=== PATIENT | male | born 1960 | race Caucasian/White ===

== ENCOUNTER 2022-07-13 02:55 | Emergency (ER) | payer BC, SELFPAY ==
[2022-07-13 02:59] VITALS: BP 152/86; PULSE 76; RESP 16; TEMP 36.5; O2SAT 96; BMI 31.9
--- NOTE | 2022-07-13 03:39 | ED.GENADULT ---
HPI - General Adult General Date Seen: 07/13/22 Chief complaint: Eye Problems Stated complaint: Left eye itching, glued shut. 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 He was doing some siding work two days ago and that evening noticed some redness in his left eye. His vision has been normal. He did not recall anything going into the eye. He has had increasing itching and redness and has been waking up with his eye stuck shut. Last tetanus was nine years ago. He used some asxh-cnb-lmuyoen drops for red eye and those did not seem to help much. Related Data Home Medications Medication Instructions Recorded Confirmed amlodipine 10 mg tablet mg 07/13/22 losartan 25 mg tablet mg 07/13/22 Allergies Allergy/AdvReac Type Severity Reaction Status Date / Time No Known Drug Allergies Allergy Verified 07/13/22 03:02 Review of Systems Status of ROS: Reports: 10 or more systems reviewed and unremarkable except as noted in History and below PFSH PFSH Social History Smoking Status: Never smoker How often do you have a drink containing alcohol: 4 or more times a week AUDIT-C Alcohol total score: 4 Non-prescribed substance use: denies use Exam Narrative: Exam Narrative: Examination of the right eye is normal. No conjunctival redness. On the left he has diffuse injection of the conjunctiva with some yellow mattering. After a couple of tetracaine drops there is a black spot at the 10 o'clock position on the left eye. Pupils are equal round reactive to light and accommodation. Funduscopic exam is normal. There appears to be a small metallic foreign body lodged in the cornea. After anesthesia I used a 27 gauge needle to remove two small metallic pieces. I then used in Baldwin brush to remove the surrounding ring. There is still a remaining black speck and I am uncomfortable going any deeper into the cornea. Unclear if this is more retained foreign material or just some further staining of the cornea. He certainly needs follow-up with an senior publications specialist. He tolerated the procedure well. Const: Vital Signs, click to edit/add: Vital Signs - 24 hr 07/13/22 02:59 Temperature 97.7 F Pulse Rate [Right Pulse Oximeter] 76 Respiratory Rate 16 Blood Pressure [Ri ght Upper Arm] 152/86 H Pulse Oximetry 96 Oxygen Delivery Me thod Room Air Course Vital Signs Vital signs: Initial Vital Signs Temperature 97.7 F 07/13/22 02:59 Temperature Source Temporal Artery Scan 07/13/22 02:59 Pulse Rate 76 07/13/22 02:59 Respiratory Rate 16 07/13/22 02:59 Blood Pressure 152/86 H 07/13/22 02:59 Blood Pressure Mean 108 07/13/22 02:59 Blood Pressure Position Sitting 07/13/22 02:59 Pulse Oximetry 96 07/13/22 02:59 Oxygen Delivery Method 07/13/22 02:59 Vital Signs Temperature 97.7 F 07/13/22 02:59 Pulse Rate 76 07/13/22 02:59 Respiratory Rate 16 07/13/22 02:59 Blood Pressure 152/86 H 07/13/22 02:59 Pulse Oximetry 96 07/13/22 02:59 Oxygen Delivery Method 07/13/22 02:59 Temperature 97.7 F 07/13/22 02:59 Pulse Rate 76 07/13/22 02:59 Respiratory Rate 16 07/13/22 02:59 Blood Pressure 152/86 H 07/13/22 02:59 Pulse Oximetry 96 07/13/22 02:59 Oxygen Delivery Method 07/13/22 02:59 Discharge Plan Discharge Clinical Impression: Corneal foreign body Patient Disposition: Home, Self-Care Condition: Improved Additional Instructions: See Dr Person (or partner today or tomorrow) [phone]. Gentamicin 2 drops every 4 hours. Ibuprofen for pain. Prescriptions: No Action amlodipine 10 mg tablet losartan 25 mg tablet Follow Up/Referrals: Satya Thornton MD [Primary Care Provider] - Stand Alone Forms: [facility] Info Instructions
--- OUTSIDE RECORDS SUMMARY | 2022-07-13 03:48 | XMS_ITS | Clinical Summary ---
:1960 Author Organization [facility] Address [address] [place] [id number] Care Team Providers Name Role Phone Satya Thornton Primary Care Provider Allergies No known active allergies Medications Medication Sig Dispensed Refills Start Date End Date Status amLODIPine (NORVASC) Take 10 mg by mouth 0 Active 10 MG tablet every evening losartan (COZAAR) 50 Take 50 mg by mouth 0 Active MG tablet every evening nystatin (MYCOSTATIN) Apply topically 2 0 Active [id number] UNIT/GM times daily as external cream needed SENNA-docusate sodium Take 1-2 tablets by 30 tablet 0 05/04/20 21 Active (SENNA S) 8.6-50 MG mouth 2 times daily tabletIndications: as needed Prostate cancer (H) (constipation) Active Problems Problem Noted Date Prostate cancer 05/04/2021 Resolved Problems Problem Noted Date Resolved Date Tear of medial cartilage or meniscus of knee, current 201009/09/2011 Other postprocedural status(V45.89) 06/27/201108/19 Social History Tobacco Use Types Packs/Day Years Used Date Smoking Tobacco: Never Smokeless Tobacco: Never Alcohol Use Standard Drinks/Week Comments Yes 0 (1 standard drink = 0.6 oz pure alcoho l) 3 BEERS/ WEEK Sex Assigned at Date Recorded Not on file Last Filed Vital Signs Vital Sign Reading Time Taken Comments Blood Pressure 100/66 05/05/2021 8:40 AM CDT Pulse 93 05/05/2021 8:40 AM CDT Temperature 37.1 ??C (98.7 ??F) 05/05/2021 8:40 AM CDT Respiratory Rate 15 05/05/2021 8:40 AM CDT Oxygen Saturation 96% 05/05/2021 8:40 AM CDT Inhaled Oxygen Concentration - - Weight 94.5 kg (208 lb 6.4 oz) 05/04/2021 5:58 AM CDT Height 175.3 cm (5' 9) 05/04/2021 5:58 AM CDT Body Mass Index 30.78 05/04/2021 5:58 AM CDT Plan of Treatment Health Maintenance Due Date Last Done Comments ADVANCE CARE PLANNING 1960 ANNUAL REVIEW OF HM ORDERS 1960 CT COLONOGRAPHY 1960 FIT-DNA (Cologuard) 1960 FIT 1960 FLEX SIG 1960 HEPATITIS B IMMUNIZATION (1 1960 of 3 - 3-dose series) YEARLY PREVENTIVE VISIT 1960 COLONOSCOPY 11/27/1969 COLORECTAL CANCER SCREENING 11/27/1969 HIV SCREENING 11/27/1974 HEPATITIS C SCREENING 11/27/1977 LIPID 11/27/1994 ZOSTER IMMUNIZATION (1 of 11/27/2009 2) COVID-19 Vaccine (3 - 02/18/2021 12/24/2020, 11/26/2020 Booster for Moderna series) PHQ-2 (once per calendar 09/18/2021 year) INFLUENZA VACCINE (#1) 2022 06/10/2020, 06/03/2011, 05/29/2009, Additional history exists DTAP/TDAP/TD IMMUNIZATION 07/01/2023 07/01/2013, 01/20/2011 , (3 - Td or Tdap) 07/01/2003, Additional history exists IPV IMMUNIZATION Aged Out No longer eligi ble based on patient 's age to complete this topic MENINGITIS IMMUNIZATION Aged Out No longe r eligible based on patient 's age to complete this topic Pneumococcal Vaccine: Aged Out No longer eligible Pediatrics (0 to 5 Years) based on patient's age and At-Risk Patients (6 to to co mplete this topic 64 Years) Insurance Payer Benefit Plan / Subscriber ID Effective Dates Phone Addre ss Type Group BCBS [facility] [id number] 2020-Present [phone] [address] [address] [place] [address] Advance Directives For more information, please contact: [phone] Latest Code Status on File Code Status Date Activated Date Inactivated Comments Full Code 05/04/2021 3:05 PM 05/05/2021 3:39 PM All basic an d advanced life-sustaining interventions are performed as fahad ropriate Question Answer Comments Code status determined by: Unable to discuss and no AD/POLST on file; continue PREVIOUSLY ORDERED code status Care Teams Engineer And Geologist Relationship Specialty Start Date End Date Satya Thornton PCP - General Family Medicine 04/14/[address] [place] [address]
--- OUTSIDE RECORDS SUMMARY | 2022-07-13 03:49 | XMS_ITS | Encounter Summary ---
:1960 Author Organization [facility] Address [address] [place] [address] Care Team Providers Name Role Phone Unavailable Primary Care Provider Unavailable Reason for Visit Appointment Request (Routine) - Closed Specialty Diagnoses / Procedures Referred By Contact Refer red To Contact Radiation Oncology Diagnoses Prostate Cancer Vinay Hui M.D. [address] [facility] [address] [address] Referral ID Status Reason Start Date Expiration Date Visits Requ ested Visits Authorized [id number] Closed 02/05/2021 02/05/2022 1 1 Encounter Details Date Type Department Care Team Description 02/17/2021 Hospital Encounter Department of Jaime Woo Malignant Radiation Oncology Юлия [facility] Neoplasm Of Prostate in [place], [facility] [address] [facility] (HCC) (Primary Dx) [place], [place] [address] [facility] [address] [place], [place] [phone] (Work) [phone] Social History Tobacco Use Types Packs/Day Years Used Date Smoking Tobacco: Never Assessed Sex Assigned at Date Recorded Not on file documented as of this encounter Last Filed Vital Signs Vital Sign Reading Time Taken Comments Blood Pressure 140/86 02/17/2021 1:52 PM CDT Pulse 85 02/17/2021 1:52 PM CDT Temperature 36.7 ??C (98 ??F) 02/17/2021 1:52 PM CDT Respiratory Rate - - Oxygen Saturation - - Inhaled Oxygen Concentration - - Weight 93.4 kg (205 lb 14.6 oz) 02/17/2021 1:52 PM CDT Height 172.5 cm (5' 7.91) 02/17/2021 1:52 PM CDT Body Mass Index 31.39 02/17/2021 1:52 PM CDT documented in this encounter Medications at Time of Discharge Medication Sig Dispensed Refills Start Date End Date nystatin (MYCOSTATIN) Apply topically. 0 06/19/20 17 100,000 unit/gram cream tamsulosin (FLOMAX) 0.4 mg Take 0.4 mg by mouth. 0 09/13/2020 24 hr capsule documented as of this encounter Consult Notes Jaime Woo M.D. - 02/17/2021 1:30 PM CDT SUBJECTIVE REQUESTING PROVIDER Vinay Hui M.D. REASON FOR CONSULT 1. Primary Malignant Neoplasm Of Prostate (HCC) HISTORY OF PRESENT ILLNESS Mr. Steve Cervantes is a 60 y.o. male with intermediate risk prostate cancer. I am asked by Dr. Hui to evaluate the patient for radiotherapy. His oncologic history is as follows: 1. August 29, 2019: PSA 5.14 ng/mL. 2. November 12, 2019: 4.45 ng/mL. 3. June 16, 2020: PSA 5.76 ng/mL. 4. August 04, 2020: Patient had a TRUS biopsy which showed no cancer with acute and chronic inflammation. 5. November 19, 2020: PSA 6.16 ng/mL. 6. November 23, 2020: Consultation with Dr. Hui who recommended an MRI. 7. November 26, 2020: Prostate MRI revealed a BI-RADS of 5 at the right base of the prostate with a 71.7 g prostate. 8. January 22, 2021: UroNav biopsy revealed adenocarcinoma of the prostate [place] 3 + 4 involving 10-80%. Perineural invasion not seen. 9. February 03, 2021: Bone scan was negative. INTERVAL HISTORY The patient reports that he is currently feeling well. He does have occasional urinary urgency as well as nocturia x1 and the slow stream. He takes Flomax 0.4 mg at bedtime. He denies any dysuria, hematuria, bladder incontinence, bowel incontinence melena, hematochezia, or new persistent bone pain. Hehas some erectile dysfunction and tried Viagra without much benefit on 1 occasion. The patient denies a history of prior radiation therapy, connective tissue disorders, or inflammatory bowel disease. The patient's ECOG performance status is 0. AUA SYMPTOM INDEX February 17, 2021: 8 (0, 2, 0, 1, 5, 0, 1) IIEF-5 February 17, 2021: 20 (2, 5, 5, 4, 4) indicative of mild erectile dysfunction. REVIEW OF SYSTEMS Review of systems was negative except as documented above. PATIENT REPORTED SYMPTOM SCREEN FATIGUE (Scale: 0 = no fatigue; 10 = worst fatigue you can imagine): 0 PAIN (Scale: 0 = no pain; 10 = worst pain you can imagine): 0 OVERALL QUALITY OF LIFE (Scale: 0 = as bad as can be; 10 = as good as can be): 10 PAST MEDICAL HISTORY 1. Metastatic Non-small cell lung cancer 2. DVT in the right calf following calcaneal fracture, no longer on anticoagulation PAST SURGICAL HISTORY 1. Right calcaneal repair, December 2007 2. Right knee arthroscopy, 1993 3. Total left hip arthroplasty, April 2019 SOCIAL HISTORY He lives in [place], [place]. He is to his , Joann. They have 3 adult children. He is a never smoker. 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 FAMILY HISTORY Paternal grandfather with prostate cancer. Maternal uncle with a brain tumor. Paternal uncle with anunknown malignancy. OBJECTIVE BP 140/86 (BP Location: Left arm, Patient Position: Sitting, Cuff Size: Small) Pulse 85 Temp 36.7 ??C (Temporal) Ht 172.5 cm Wt 93.4 kg BMI 31.39 kg/m?? PHYSICAL EXAM General: Patient is awake, alert, and oriented to person, place, and time. No apparent distress. Thepatient is here today with his , Joann. ENT: Pupils equal, round, and reactive to light. Sclera anicteric. Oral cavity inspection reveals moist mucous membranes and no visible lesions. Neck: Supple. Lymph: No palpable cervical, supraclavicular, infraclavicular, or axillary adenopathy. Spine: There is no tenderness to palpation of the spine. Lungs: Clear to auscultation bilaterally. Heart: Regular rate and rhythm. Normal S1 and S2. No murmurs. Abdomen: Normal active bowel sounds are present. Extremities: No edema on the left. Slight edema on the right to the mid botello. Rectal: Deferred. DIAGNOSTICS I reviewed the pathology reports from the patient's prostate biopsies as listed above in the numbered items of the HPI. I also went over his prostate MRI and bone scan images with him. ASSESSMENT / PLAN 1. Stage IIB (cT1c, cN0, cM0, PSA: 6.2, Grade Group: 2) adenocarcinoma of the prostate I had a detailed discussion with the patient and his regarding the risks, benefits, and alternatives of radiotherapy in this setting. I consulted the NCCN guidelines in formulating my recommendations and reviewed these with him. The patient has already discussed prostatectomy with Dr. Hui; hence, I focused my discussion on radiotherapy options. These include: 1. External beam radiotherapy alone to a dose of 60 Gy in 20 fractions or 70.2 Gy in 26 fractions utilizing IMRT; 2. A combination of external beam radiotherapy to a dose of 45 Gy in 25 fractions or 37.5 Gy in 15 fractions utilizing IMRT and 1 high dose rate prostate brachytherapy boost implant; 3. Stereotactic body radiation therapy to a dose of 36.25 to 40 Gy in 5 fractions. We discussed the use of a Hydrogel spacer and the fact that this is mandatory for SBRT but optionalfor fractionated radiotherapy. The patient is eligible for the ???COMPPARE: A Prospective Comparative Study of Outcomes with Protonand Photon Radiation in Prostate Cancer?? trial (IRB# [id number]). We discussed the similarities anddifferences of proton in photon radiation. I explained that this trial is seeking to evaluate in a prospective fashion if proton therapy is superior to photon therapy. We would be treating him with photon treatment at our site. The patient is in excellent health and has an ECOG performance status of 0. We discussed the results of the ProtecT trial that randomized patients to surgery, radiotherapy, or observation (Suzi et al, [facility], 2016) that showed that surgery and radiotherapy were equally efficacious. We also discussed the fact that surgical salvage is typically not possible after any form of prostate radiotherapy. I also discussed the indications for adjuvant radiotherapy following prostatectomy as well as salvage radiotherapy in the setting of rising PSA. I discussed the logistics as well as the acute and chronic side effects associated with treatment indetail including acute side effects of urinary frequency and urgency, dysuria, bowel frequency and urgency, diarrhea, gaseous bloating and discomfort, radiation dermatitis, loss of pubic hair, and fatigue. Long-term side effects include common mild increase in urinary and bowel frequency, as well as more rare side effects including radiation cystitis (5% risk or less), radiation proctitis (5% or lessrisk), urethral stenoses requiring dilatation (1% risk or less), fistula formation (less than 1% risk), increasing arthritis of the hips, small bowel obstruction, and a very small risk of secondary malignancy. The patient is also likely to experience erectile dysfunction. After this discussion, I provided the patient with a written summary of my recommendations. His questions and those of his spouse were answered to their verbalized satisfaction. The patient is meeting with Dr. Corral next week to further discuss prostatectomy. If he decides to pursue radiotherapy, he will contact me, but I will not schedule a formal follow-up visit with him at this time. The patient and his spouse verbalized satisfaction with this plan My thanks to Drs. Hui and Norberto for the opportunity to participate in this patient's care. EDUCATION Ready to learn, no apparent learning barriers were identified; learning preferences include listening. Explained diagnosis and treatment plan; patient expressed understanding of the content. CONSENT Discussed the risks, benefits, alternatives, and the necessity of other members of the healthcare team participating in the procedure. All questions answered and consent given. I have spent 60 minutes with this patient today with 55 minutes spent in counseling the patient. Signed by: Jaime Woo M.D. 02/17/2021 5:08 PM CDT Radiation Oncology [facility] [address] [place] [address] documented in this encounter Miscellaneous Notes Addendum Note - Delores Marcos - 02/17/2021 1:30 PM CDT Encounter addended by: Delores Marcos on: 02/18/2021 11:18 AM Actions taken: Letter saved documented in this encounter Plan of Treatment Not on filedocumented as of this encounter Visit Diagnoses Diagnosis Primary Malignant Neoplasm Of Prostate ( HCC) - Primary documented in this encounter
--- OUTSIDE RECORDS SUMMARY | 2022-07-13 03:49 | XMS_ITS | Encounter Summary ---
:1960 Author Organization [facility] Address [address] [place] [id number] Care Team Providers Name Role Phone Satya Thornton Primary Care Provider Reason for Visit Auth/Cert Specialty Diagnoses / Procedures Referred By Contact Refer red To Contact Surgery Diagnoses Prostate cancer (H) Prostate cancer (H) [C61] Sh Periop Services Procedures ZZC LAPAROSCOPY, SURGICAL PROSTATECTOMY, RETROPUBIC RADICAL, W/NERVE SPARING robotic assisted laparoscopic prostatectomy AND PELVIC LYMPH NODE DISSECTION [address] [place] [address] Phone: Referral ID Status Reason Start Date Expiration Date Visits Requ ested Visits Authorized [id number] 1 1 Encounter Details Date Type Department Care Team Description 05/04/2021 - [facility], Prostate cancer (H) 05/05/2021 Encounter [place] [id number] Jeffry Arana MD (Primary Dx) [facility] [address] [place] [address] [address] [address] [place], [place] [id number] Social History Tobacco Use Types Packs/Day Years Used Date Smoking Tobacco: Never Smokeless Tobacco: Never Alcohol Use Standard Drinks/Week Comments Yes 0 (1 standard drink = 0.6 oz pure alcoho l) 3 BEERS/ WEEK Sex Assigned at Date Recorded Not on file COVID-19 Exposure Response Date Recorded In the last month, have you been in contact with No / Unsure 05/04/2021 5:31 AM CDT someone who was confirmed or suspected to have Coronavirus / COVID-19? documented as of this encounter Last Filed [...] Mass Index 30.78 05/04/2021 5:58 AM CDT documented in this encounter Discharge Summaries Carolina Alegre PA-C - 05/05/2021 9:31 AM CDT UROLOGY PROGRESS NOTE May 05, 2021 Post-op Day # 1 SUBJECTIVE: Doing very well. Minimal pain, describes discomfort as more muscular with movement. Tolerating diet, denies N/V. Ambulated yesterday. OBJECTIVE: Temp: [96.5 ??F (35.8 ??C)-98.7 ??F (37.1 ??C)] 98.7 ??F (37.1 ??C) Pulse: [70-95] 93 Resp: [13-18] 15 BP: (100-138)/(66-87) 100/66 SpO2: [91 %-97 %] 96 % Intake/Output Summary (Last 24 hours) at 05/05/2021 0931 Last data filed at 05/05/2021 0615 Gross per 24 hour Intake 1990 ml Output 3300 ml Net -1310 ml GENERAL: Awake, alert, no acute distress, resting in bed HEAD: Normocephalic atraumatic SCLERA: Anicteric EXTREMITIES: Warm and well perfused ABDOMEN: Soft, appropriately tender, non-distended. No guarding, rigidity, or peritoneal signs. INCISION: C/d/i, dermabond : Macario with alicia output LABS: Lab Results Component Value Date WBC 12.3 05/05/2021 Lab Results Component Value Date HGB 11.1 05/05/2021 Lab Results Component Value Date HCT 33.3 05/05/2021 Lab Results Component Value Date PLT 193 05/05/2021 Last Basic Metabolic Panel: Lab Results Component Value Date NA 141 05/05/2021 Lab Results Component Value Date POTASSIUM 4.1 05/05/2021 Lab Results Component Value Date CHLORIDE 112 05/05/2021 Lab Results Component Value Date JOE 8.5 05/05/2021 Lab Results Component Value Date CO2 25 05/05/2021 Lab Results Component Value Date BUN 15 05/05/2021 Lab Results Component Value Date CR 0.86 05/05/2021 Lab Results Component Value Date GLC 105 05/05/2021 ASSESSMENT/PLAN: 60yo man POD [address] Corral. Doing very well. Acute blood loss anemia Hgb 13.5 -> 11.1. 1. Regular diet as tolerated 2. Sched tylenol, PRN oxy and dilaudid 3. OOB ambulate QID 4. Dc IVF 5. Dispo: Discharge to home today. Follow-up with Dr. Corral 10-14 days for macario removal, path review. Discussed follow-up recommendations, incision cares, medications, activity restrictions, and when to call/be concerned with the patient. Carolina Alegre PA-C [facility] After 4pm and on weekends, please call [phone] Addm: Addended to add hgb results per inquiry from billing/coding team (Amanda Morillo). documented in this encounter Medications at Time of Discharge Medication Sig Dispensed Refills Start Date End Date amLODIPine (NORVASC) 10 Take 10 mg by mouth 0 MG tablet every evening losartan (COZAAR) 50 MG Take 50 mg by mouth 0 tablet every evening nystatin (MYCOSTATIN) Apply topically 2 0 [id number] UNIT/GM external times daily as needed cream SENNA-docusate sodium Take 1-2 tablets by 30 tablet 0 05/04 (SENNA S) 8.6-50 MG mouth 2 times daily tabletIndications: as needed Prostate cancer (H) (constipation) ciprofloxacin (CIPRO) Take 1 tablet (500 6 tablet 0 202005/21/2021 500 MG mg) by mouth 2 times tabletIndications: daily for 3 days To Prostate cancer (H) begin taking the day PRIOR to your appointment for catheter removal. oxyCODONE (ROXICODONE) 5 Take 1 tablet (5 mg) 10 tablet 0 0 05/05/2021 05/08/2021 MG tabletIndications: by mouth every 6 Prostate cancer (H) hours as needed for moderate to severe pain documented as of this encounter Progress Notes Julieth Nieto RN - 05/05/2021 1:24 PM CDT Discharge Note Patient discharged to home via private vehicle accompanied by significant other . IV: Discontinued Prescriptions filled and given to patient/family. Belongings reviewed and sent with patient. Home medications returned to patient: NA Equipment sent with: patient, N/A. patient verbalizes understanding of discharge instructions. AVS given to patient. 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 No Time spent in this activity: 15 minutes The information provided in this note is only as accurate as the sources available at the time of update(s) Prior to Admission medications Medication Sig Last Dose Taking? Auth Provider amLODIPine (NORVASC) 10 MG tablet Take 10 mg by mouth every evening at PM Yes Reported, Patient losartan (COZAAR) 50 MG tablet Take 50 mg by mouth every evening at PM Yes Reported, Patient nystatin (MYCOSTATIN) 197427 UNIT/GM external cream Apply topically 2 times daily as needed at PRN Yes Reported, Patient tamsulosin (FLOMAX) 0.4 MG capsule Take 0.4 mg by mouth every evening at PM Yes Reported, Patient documented in this encounter H&P Notes Jamshid Vivar MD - 05/04/2021 7:14 AM CDT I have reviewed the surgical (or preoperative) H&P that is linked to this encounter, and examined the patient. There are no significant changes Source Note - William, Provider - 04/29/2021 9:24 AM CDT documented in this encounter Procedure Notes Jeffry Corral MD - 05/04/2021 1:48 PM CDT Preoperative Diagnosis: Prostate Cancer Postoperative Diagnosis: Prostate Cancer Procedure: 1. Robotic Radical Prostatectomy with bilateral pelvic lymphadenectomy Surgeon: Jeffry Corral MD Insurance Writer: Carolina Alegre PA-C Date of Procedure: 05/04/21 OPERATIVE INDICATION: Steve Cervantes is a 60 year old male with prostate cancer. After understanding various management options he elected to undergo today's procedure. Clinical stage: [id number] PSA: 6.16 CHERYL: >50g, cT1c MRI findings: PIRADS 5 lesion anterior base Prostate volume: 72g EPE: unlikely SVI:unlikely Urethral length: LNI:unlikely Biopsy grade: 3+4=7 # cores positive: 1 # cores total: n/a Intraoperative findings: Urethra: good length Right nerve sparing: near complete Left nerve sparing:near complete Bladder neck sparing: partial Bladder neck reconstruction:anterior Anastomosis tested:yes, watertight Lymphadenopathy:none Accessory obturator artery/size/spared: none Median lobe: Large PORT PLACEMENT: Standard 6 ports After discussing all treatment options, the patient elected to proceed with robotic prostatectomy. The patient understands that we will proceed with robotic prostatectomy, but will convert to open prostatectomy if needed. DESCRIPTION OF PROCEDURE: The patient was identified and was brought to the operating room. He was placed on a Gelfoam padded table. After adequate general anesthesia, he was placed in supine position. Pneumatic compression stockings had been applied. All pressure points were adequately padded. Arms were tucked and he was secured to the table. The patient was then prepped and draped in the usual manner. Time out was called. An 18 [place] Earlimart catheter was placed and the bladder was emptied. I made a small supraumbilical incision. Using a Veress needle, pneumoperitoneum was achieved. I then placed an 8 mm port at this site. Initial endoscopic inspection with a 0 degree lens showed no evidence of vascular or visceral injury. There were adhesions of sigmoid in the LLQ and small bowel in the RLQ. The remaining ports were then placed. Two 8 mm ports were placed on either side 10 cm from the umbilical port. A 12 mm port was placed in the right lower quadrant above the anterior superior iliac spine, and a similar location onthe left side an 8 mm port was placed. A 5 mm suction port was placed lateral to the camera port on the right side. With all the ports in place the patient was placed in steep Trendelenburg position and the robot was docked. The LLQ and RLQ adhesions were taken sharply. The sigmoid was gently released from the LLQ and the posterior bladder at the cul-de-sac. I then incised the peritoneum at the bladder base and the posterior dissection was carried beneath Denonvillier's fascia to the prostate apex. There was significant adipose which made this more difficult. The seminal vesicles and vas deferens were identified and dissected free. Next peritoneal incisions were made lateral to the medial umbilical ligaments and the bladder was dissected away from the anterior abdominal wall and pubic ramus to expose the prostate. The superficial dorsal vein was cauterized and transected. The endopelvic fascia was opened. Incision wasmade in the lateral prostatic fascia and nerve-sparing was started in the interfascial plane. Next the anterior bladder wall was incised at the level of the bladder neck, taking care to provide adequate margin given anterior tumor at the prostate base. There was a large median lobe. The posterior bladder neck was then excised and dissected away from the base of the prostate. The seminal vesicles and vas deferens were now tented up. This exposed the lateral pedicles. I then proceeded to identify the plane between the lateral prostate and the lateral pedicles. Hem-O-Patricia clips were used and the lateral pedicle was transected. Electrocautery was not used in this area.Near complete bilateral nerve preservation was performed. The dissection was carried around the apexof the prostate. Next I transected the deep dorsal vein and then oversewed this with a running 3-0 V-patricia suture. The urethra was transected distal to the apex of the prostate and the prostate was placed in a Endocatch. Excellent urethral length was preserved. Chad-Seal was used to achieve further hemostasis. A bilateral pelvic lymph node dissection was done, removing fibrofatty tissue in the external iliac and obturator areas. Bipolar cautery and hemolock clips were used to ligate lymphatic vessels. The obturator nerve was identified and preserved bilaterally. I then proceeded to anastomose the bladder neck to the urethra using a running suture of 3-0 Monocryl on a double armed needle. This was difficult due to large prominence on the pubic bone. An 18 [place] Earlimart catheter was placed and the bladder irrigated well. A good watertight, tension free anastasmosis was obtained. Further inspection at this time showed no further bleeding. The string of the Endocatch was then brought out through the umbilical port site. The robot was then undocked. The laparoscopic ports were removed under vision and the 12 mm judicial assistant port was closed with an 0 Vicryl using a Malik Thomasen device I slightly extended the supraumbilical incision and the prostate was removed through this site. The fascia was then closed using running 0 Vicryl sutures. The skin incisions were closed using 4-0 monocryl and Dermabond. The needle, sponge and lap counts were correct. The patient remained stable throughout the entire procedure. The estimated blood loss was: 500 ml. The patient tolerated the procedure well and was sent to the recovery room in stable condition. Catheter can be removed in 10-14 days documented in this encounter Nursing Notes Shahla Patton RN - 05/04/2021 2:[address] Adams notified of some apnea and decreased ventilation with very brief periods of desats. Patientis ventilating better now and is more awake. Oxymask placed temporarily. Possible wide qrs, bbb. 12 lead ordered and done and reviewed by dr Adams. Dr Vivar also to bedside. documented in this encounter Miscellaneous Notes Plan of Care - Kamille Casey RN - 05/05/2021 5:14 AM CDT POD1. VSS on 2L O2. Capno WDL. A&Ox4. Denies pain. Ambulated halls SBA/IV pole, tolerated well. Macario with pink UOP. Tolerating clears, on regular diet. Denies passing flatus. Abd lap sites x6. Discharge pending. Plan of Care - Francisca Lion RN - 05/04/2021 7:32 PM CDT Up to unit at 1600. POD 0 Prostatectomy. A/O x 4. Denies pain and nausea. Scheduled tylenol given. Not out of bed this shift. Regular diet ordered, has only taken clears so far. Denies nausea. Macario catheter with pink/red output, no clots noted. Abdominal lap sites x 6, closed with dermabond. Discharge pending clinical progress. documented in this encounter Plan of Treatment Not on filedocumented as of this encounter Procedures Procedure Name Priority Date/Time Associated Comments Diagnosis BASIC METABOLIC PANEL Routine 05/05/2021 7:14 Res ults for this AM CDT procedure are i n the results section. CBC WITH PLATELETS Routine 05/05/2021 7:14 Result s for this AM CDT procedure are i n the results section. GLUCOSE BY METER Routine 05/05/2021 5:53 Results for this AM CDT procedure are i n the results section. EKG 12-LEAD, TRACING STAT 05/04/2021 2:45 Resu lts for this ONLY PM CDT procedure are i n the results section. SURGICAL PATHOLOGY EXAM Routine 05/04/2021 9:37 R esults for this AM CDT procedure are i n the results section. PROSTATECTOMY, 05/04/2021 7:30 Prostate cancer ROBOT-ASSISTED, USING DA AM CDT (H) KADEEM XI, WITH PELVIC LYMPHADENECTOMY Special Needs FILOMENA UPDATED PRE PROCEDURE F ORM 04/30/21 AB TYPE AND SCREEN, ADULT STAT 05/04/2021 6:00 AM CDT ABO/RH TYPE AND SCREEN STAT 05/04/2021 6:00 AM CDT EKG CARDIAC - HIM SCAN 04/26/2021 12:00 AM CDT documented in this encounter Results (ABNORMAL) CBC with platelets (05/05/2021 7:14 AM CDT) [facility] Method Time Signature WBC Count 12.3 (H) 4.0 - 11.0 05/05/2021 LABORATORY 10e3/uL 7:40 AM CDT RBC Count 3.64 (L) 4.40 - 05/05/2021 LABORATORY 5.90 7:40 AM CDT 10e6/uL Hemoglobin 11.1 (L) 13.3 - 05/05/2021 LABORATORY 17.7 g/dL 7:40 AM CDT Hematocrit 33.3 (L) 40.0 - 05/05/2021 LABORATORY 53.0 % 7:40 AM CDT MCV 92 78 - 100 05/05/2021 LABORATORY fL 7:40 AM CDT MCH 30.5 26.5 - 05/05/2021 LABORATORY 33.0 pg 7:40 AM CDT MCHC 33.3 31.5 - 05/05/2021 LABORATORY 36.5 g/dL 7:40 AM CDT RDW 13.0 10.0 - 05/05/2021 LABORATORY 15.0 % 7:40 AM CDT Platelet Count 193 150 - 450 05/05/2021 LABORATORY 10e3/uL 7:40 AM CDT Specimen Anatomical Collection Method / Collection Time Recei chevy Time (Source) Location / Volume Laterality Blood STRUCTURE OF LEFT Venipuncture / 05/05/2021 7:14 05/05 7:35 UPPER LIMB / Unknown AM CDT AM CDT Unknown Carolina Alegre PA-C LAB - BLOOD ORDERABLES Performing Organization Address City/State/ZIP [place] [address] [phone] [facility] [address] floor, [address] (ABNORMAL) Basic metabolic panel (05/05/2021 7:14 AM CDT) Analysis Performed At Patho logist Time Signature Sodium 141 133 - 144 05/05/2021 LABORATORY mmol/L 8:00 AM CDT Potassium 4.1 3.4 - 5.3 05/05/2021 LABORATORY mmol/L 8:00 AM CDT Chloride 112 (H) 94 - 109 05/05/2021 LABORATORY mmol/L 8:00 AM CDT Carbon Dioxide 25 20 - 32 05/05/2021 LABORATORY (CO2) mmol/L 8:00 AM CDT Anion Gap 4 3 - 14 05/05/2021 LABORATORY mmol/L 8:00 AM CDT Urea Nitrogen 15 7 - 30 05/05/2021 LABORATORY mg/dL 8:00 AM CDT Creatinine 0.86 0.66 - 05/05/2021 LABORATORY 1.25 mg/dL 8:00 AM CDT Calcium 8.5 8.5 - 10.1 05/05/2021 LABORATORY mg/dL 8:00 AM CDT Glucose 105 (H) 70 - 99 05/05/2021 LABORATORY mg/dL 8:00 AM CDT GFR Estimate >90 >60 05/05/2021 LABORATORY mL/min/1.7 8:00 AM CDT 3m2 Comment: As of March 28, 2021, eGFR is ca lculated by the CKD-EPI creatinine equation, without race adjustment. eGFR can be inf luenced by muscle mass, exercise, and diet. The reported eGFR is an estimation only and is only applicable if the renal function is stable. Specimen Anatomical Collection Method / Collection Time Recei chevy Time (Source) Location / Volume Laterality Blood STRUCTURE OF LEFT Venipuncture / 05/05/2021 7:14 05/05 7:35 UPPER LIMB / Unknown AM CDT AM CDT Unknown Carolina Alegre PA-C LAB - BLOOD ORDERABLES Performing Organization Address City/State/ZIP Code Phon e Number LABORATORY [facility] [address] [facility] [address], Room [address] (ABNORMAL) Glucose by meter (05/05/2021 5:53 AM CDT) athologist Signature GLUCOSE BY 102 (H) 70 - 99 05/05/2021 LABORATORY METER POCT mg/dL 6:01 AM CDT POC Specimen Anatomical Collection Method Collection Time Receive d Time (Source) Location / / Volume Laterality Blood BLOOD SPECIMEN / 05/05/2021 5:53 AM 05/05 6:01 Unknown CDT AM CDT Jeffry Corral MD LAB - BEAKER POCT Performing Organization Address City/[facility]/ZIP Code Phon e Number LABORATORY [place] [facility] [place] [address] [facility] [address], [address] EKG 12-lead, tracing only (05/04/2021 2:45 PM CDT) Component Value Ref Range Test Analysis Performed Pathologis t Method Time At Signature Systolic Blood mmHg RADIOLOGY Pressure RESULTS Diastolic Blood mmHg RADIOLOGY Pressure RESULTS Ventricular Rate 89 BPM RADIOLOGY RESULTS Atrial Rate 89 BPM RADIOLOGY RESULTS MT Interval 134 ms RADIOLOGY RESULTS QRS Duration 102 ms RADIOLOGY RESULTS QT 396 ms RADIOLOGY RESULTS QTc 481 ms RADIOLOGY RESULTS P [place] degrees RADIOLOGY RESULTS R AXIS -13 degrees RADIOLOGY RESULTS T [place] -8 degrees RADIOLOGY RESULTS Interpretation Sinus rhythm RADIOLOGY ECG Inferior infarct , age undetermined RESULTS T-wave abnormality Abnormal ECG No previous ECGs available Confirmed by MD ASTON, ISAI Holbrook ([id number]), map editor MENA CAST ([id number]) on 05/06/2021 8:09:53 AM Specimen Anatomical Collection Method Collection Time Receive d Time (Source) Location / / Volume Laterality 05/04/2021 2:45 PM 8:09 CDT AM CDT Sumit Adams MD ECG ORDERABLES Performing Organization Address City/[facility]/ZIP Code Phon e Number RADIOLOGY RESULTS Surgical Pathology Exam (05/04/2021 9:37 AM CDT) Component Value Ref Test Analysis Performed At Patholo gist Range Method Time Signature Case Report Surgical Pathology Report ? Case: [id number] ? 05/07/2021 SH Authorizing Provider: ??O'Sh Jeffry crowley ? Collected: ? 05/04/2021 09:37 AM ? 5:46 PM LABORATOR Y ? MD Sumit ? CDT [facility] ?Received: ?05/05/2021 08:25 AM ? [facility] ? Pathologist: ? Moench, Ashleigh Russo, ? MD ? Specimens: ?? A) - Other, PE RI-PROSTATIC FAT ? B) - Pros root, PROSTATE AND SEMINAL VESICLES ? C) - Lymp h Node(s), Pelvis, Right, RIGHT PELVIC LYMPH NODES ? D) - Lymp h Node(s), Pelvis, Left, LEFT PELVIC LYMPH NODES ? Final A: Periprostatic fat, excision Electronically Diagnosis -Negative for malignancy 5:46 PM LABOR ATORY signed by CDT Elodia Marte B: Prostate, robotic assisted laparoscopic prostatectomy MD Rafaela on -Prostatic adenocarcinoma, acinar type, confined to prostate 05/07/2021 at -Jovan grade 3+4 = 7, grade group 2 5:46 PM -Margins: Negative -See synoptic report below for additional details C: Lymph nodes, pelvis, right, dissection -Six lymph nodes negative for malignancy (0/6) D: Lymph nodes, pelvic, left, dissection -Eight lymph nodes negative for malignancy (0/8) Synoptic PROSTATE GLAND: Radical Pros tatectomy ??(PROSTATE GLAND: RADICAL PROSTATECTOMY - All Specimens) 05/07/2021 Checklist 5:46 PM LABORATORY 8th Edition - Protocol posted: 11/13/2019 CDT SPECIMEN ?? Procedure: ?Radical prostatectomy ?? Prostate Size: ? Prostate Weight (g): ?90.8 g ? Prostate Greatest Dimension (Centimeters): ?5.3 c m ? Additional Dimension (Centimeters): ?4.8 cm ? Additional Dimension (Centimeters): ?3.8 cm TUMOR ?? Histologic Type: ?Acinar adenocarcinoma ?? Histologic Grade: ? Grade Group and Gleas on Score: ?Grade group 2 (Jovan Score 3 + 4 = 7) ? Percentage of Pattern 4: ?15 % ?? Intraductal Carcinoma (IDC): ?Not identified ?? Tumor Quantitation: ?Estimated percentage of prostate involved by tumor: 5 % ?? Extraprostatic Extension (EPE): ?Not identified ?? Urinary Bladder Neck Invasion: ?Not identified ?? Seminal Vesicle Invasion: ?Not identified ?? Treatment Effect: ?No known presurgical therapy ?? Lymphovascular Invasion: ?Not Identified MARGINS ?? Margins: ?Uninvolved by invasive carcinoma LYMPH NODES ?? Number of Lymph Nodes Involved: ?0 ?? Number of Lymph Nodes Examined: ?14 PATHOLOGIC STAGE CLASSIFICATION (pTNM, AJCC 8th Edition) ? Primary Tumor (pT): ?pT2 ?? Regional Lymph Nodes (pN): ?pN0 ADDITIONAL FINDINGS ?? Additional Findings: ?None identified Clinical Prostate cancer 05/07/2021 Information 5:46 PM LABORATORY CDT Case Images 05/07/2021 5:46 PM LABORATORY CDT Gross A(1). Other, PRIYANKA-PROSTATIC FAT: 021 Description The specimen is received in formalin labeled with the patient's name, medical record number and other identifying information and designated periprosthetic fat. It consists of a 4.5 x 3.5 x 0.8 cm por 5:46 PM LABORATORY tion of yellow-rojas adipose t issue. Sectioning reveals no discrete lesions or lymph nodes. Serially sectioned and entirely submitted in 2 cassettes. CDT B(2). Prostate, PROSTATE AND SEMINAL VESICLES: The specimen is received in formalin labeled with the patient's name, medical record number, and other identifying information and designated prostate and seminal vesicles. It consists of a 90.8 g rad ical prostatectomy specimen measuring 4.8 cm apex to base x 5.3 cm transversely x 3.8 cm anterior to posterior. The right and left seminal vesicles measure 3.0 x 1.8 x 1.0 cm and 3.3 x 1.5 x 0.6 cm resp ectively. The right and left vasa deferentia measure 3.5 cm in length x 0.5 cm in diameter and 5.3 cm in length x 0.4 cm diameter, respectively. The left side of the prostate is inked black, and the rig ht side is inked blue. The b ladder neck and distal urethral margins are coned and submitted entirely. The specimen is serially sectioned from apex to base into 16 slices, revealing a yellow-pink, focall y nodular cut surface. No di screte tumor nodules are noted grossly. Field Applications Specialist sections including the entire posterior aspect are submitted. Summary of Sections: B1 - right seminal vesicle and en face vas deferens margin B2 - left seminal vesicle and en face vas deferens margin B3-B4 - right bladder neck margin B5-B6 - left bladder neck margin B7 - right distal urethral margin B8 - left distal urethral margin B9-B24 - right posterior, sequentially submitted from apex t o base B25-B40 - left posterior, sequentially submitted from apex t o base B41 - right anterior mid (slice 8) B42 - left anterior mid (slice 8) C(3). Lymph Node(s), Pelvis, Right, RIGHT PELVIC LYMPH NODES : The specimen is received in formalin labeled with the patient's name, medical record number and other identifying information and designated right pelvic lymph nodes. It consists of 6 yellow-pink foca lly fatty replaced potential lymph nodes ranging from 0.2-4.0 cm in greatest dimension. The lymph nodes are serially sectioned and entirely submitted. Summary of sections: C1-4 intact potential lymph node C2-1 bisected potential lymph node C3-C7-1 sectioned potential lymph node D(4). Lymph Node(s), Pelvis, Left, LEFT PELVIC LYMPH NODES: The specimen is received in formalin labeled with the patient's name, medical record number and other identifying information and designated left pelvic lymph nodes. It consists of 8 yellow-pink focal ly fatty replaced potential lymph nodes ranging from 0.2-2.0 cm in greatest dimension. The lymph nodes are entirely submitted. Summary of sections: D1-4 intact potential lymph nodes D2-2 intact potential lymph nodes D3-1 bisected potential lymph node D4-1 bisected potential lymph node (Merry Crow, PA ASCP CM) Microscopic The microscopic 05/07/2021 Description findings support 5:46 PM LABORATORY the diagnosis. CDT Performing The technical 05/07/2021 Labs component of this 5:46 PM LABORATORY testing was CDT completed at [facility] Laboratory Specimen Anatomical Collection Method Collection Time Receive d Time (Source) Location / / Volume Laterality Tissue TOPOGRAPHY UNKNOWN 05/04/2021 9:37 AM 8:25 / Unknown CDT AM CDT Comment: SH OR 43 Tissue specimen PROSTATIC STRUCTURE 05/04/2021 12:42 P M 05/05/2021 8:25 AM (specimen) / Unknown CDT CDT Tissue specimen PELVIC LYMPH NODE 05/04/2021 12:43 PM 05/05/2021 8:25 AM (specimen) STRUCTURE / Unknown CDT CDT Tissue specimen PELVIC LYMPH NODE 05/04/2021 12:43 PM 05/05/2021 8:25 AM (specimen) STRUCTURE / Unknown CDT CDT Jeffry Corral MD [facility] Performing Organization Address City/State/ZIP Code [place] [address] [phone] [facility] [address] 1[address] floor, Room [address] Adult Type and Screen (05/04/2021 6:00 AM CDT) [facility] Method Time Signature ABO/RH(D) AB POS 05/04/2021 BLOOD 6:00 AM CDT BANK Antibody Negative Negative 05/04/2021 BLOOD Screen 6:00 AM CDT BANK SPECIMEN [id number] 05/04/2021 BLOOD EXPIRATION 6:00 AM CDT BANK DATE Specimen Anatomical Collection Method / Collection Time Recei chevy Time (Source) Location / Volume Laterality Blood STRUCTURE OF RIGHT Venipuncture / 05/04/2021 6:00 /03/2021 6:06 UPPER LIMB / Unknown AM CDT AM CDT Unknown Carolina Alegre PA-C LAB - BLOOD BANK TEST ORDER Performing Organization Address City/State/ZIP Code Phon e Number BLOOD BANK [address] [id number] EKG CARDIAC - HIM SCAN (04/26/2021 12:00 AM CDT) Specimen (Source) Anatomical Location Collection Method / Collectio n Time Received Time / Laterality Volume 04/26/2021 Narrative This result has an attachment that is no t available. Provider Scan ECG ORDERABLES documented in this encounter Visit Diagnoses Diagnosis Prostate cancer (H) - Primary Malignant neoplasm of prostate Prostate cancer (H) Malignant neoplasm of prostate documented in this encounter Admitting Diagnoses Diagnosis Prostate cancer (H) Malignant neoplasm of prostate documented in this encounter Administered Medications Inactive Administered Medications - up to 3 most recent administrations Medication Order MAR Action Action Date Dose Rate Site acetaminophen (TYLENOL) tablet 975 Given 05/04/2021 6:38 AM CDT 975 mg mg 975 mg, Oral, ONCE, On Mon05/04/21 at 0600, For 1 dose, Maximum acetaminophen dose from all sources = 75 mg/kg/day not to exceed 4 grams/day., Pre-procedure acetaminophen (TYLENOL) tablet 975 mg Given 05/05/2021 10:36 AM CDT 975 mg 975 mg, Oral, EVERY 6 HOURS, First dose on Mon05/04/21 at 1600, For 3 days, Administer for multimodal surgical pain management. Maximum acetaminophen dose from all sources = 75 mg/kg/day not to exceed 4 grams/day. Given 05/05/2021 3:25 AM CDT 975 mg Given 05/04/2021 9:19 PM CDT 975 mg ceFAZolin (ANCEF) 1 g vial to attach to NS New Bag 05/05/2021 10:3 6 AM CDT 1 g 100 ml bag for ADULT or 50 ml bag for PE DS Routine, 1 g, Intravenous, EVERY 8 HOURS, First dose on Mon05/04/21 at 1900, For 3 doses, Indications: Perioperative Pharmacoprophylaxis New Bag 05/05/2021 3:25 AM CDT 1 g New Bag 05/04/2021 7:04 PM CDT 1 g diphenhydrAMINE (BENADRYL) capsule 25 mg 25 mg, Oral, EVERY 6 HOURS PRN, itching, Starting on Mon05/04/21 at 1553, Caution to be used when administering multiple C entral Nervous System (MEMORANDUM STATEMENT CLERK) depressing meds within a short time frame. diphenhydrAMINE (BENADRYL) injection 25 mg 25 mg, Intravenous, EVERY 6 HOURS PRN, i tching, Only give if patient unable to take PO., Starting on Mon05/04/21 at 1553, Caution to be us ed when administering multiple Central Nervous System (MEMORANDUM STATEMENT CLERK) de pressing meds within a short time frame. For ordered IV doses 1-50 mg, give IV Pu sh undiluted. Give each 25mg over a minimum of 1 minute. Extend in non-emergency HYDROmorphone (DILAUDID) injection 0.2 m g 0.2 mg, Intravenous, EVERY 2 HOURS PRN, other, moderate pain (pain rating 4-6) IF patient unable to take oral pain medication or pain no t controlled with oral analgesics, Starting on Mon05/04/21 at 1 553, Hold IV PRN opioid dose for analgesic side effects. Notify provider to assess for uncontroll ed pain or analgesic side effects. HYDROmorphone (DILAUDID) injection 0.4 m g 0.4 mg, Intravenous, EVERY 2 HOURS PRN, other, severe pain (pain rating 7-10) IF patient unable to take oral pain medication or pain no t controlled with oral analgesics, Starting on Mon05/04/21 at 1 553, Hold IV PRN opioid dose for analgesic side effects. Notify provider to assess for uncontroll ed pain or analgesic side effects. naloxone (NARCAN) injection 0.2 mg 0.2 mg, Intravenous, EVERY 2 MIN PRN, op ioid reversal, Starting on Mon05/04/21 at 1606, Administer intravenous route when available and notify provider when administered. For unintended sedation or respiratory depression if all of the below criteria are met: ~ respiratory rate LES S than or EQUAL to 8. ~SaO2 less than 92% and or/end-tidal CO2 is greater than 50. ~ the patient is receiving an opioid, has unintended sedations assessed as RASS (-3), and is cur rently not on mechanical ventilation. RASS scale moderate (-3) is movement or eye opening to voice but no eye contact. Patient Monitoring Once the patient has demonstrated a response to the naloxone, continue to monitor respiratory rate, depth, oxygen saturation and end-tidal CO2 (if available) every 15 mi nutes x 2, then every 30 minutes x 2, then every 1 hour x 1 after each naloxone dose. Consider tr ansfer to ICU if patient respiratory parameters have not improved after 4 nalox one doses. For ordered IV doses 0.1-2mg give IVP. Give each 0.4mg over 15 seconds in emergency situations. For non-emergent situations further dilu te in 9mL of NS to facilitate titration of response. naloxone (NARCAN) injection 0.2 mg 0.2 mg, Intramuscular, EVERY 2 MIN PRN, opioid reversal, Starting on Mon05/04/21 at 1606, Administer intramuscular if an int ravenous route is not available and notify provider when administered. For unintend ed sedation or respiratory depression if all of the below criteria are met: ~ respiratory rate LESS than or EQUAL to 8. ~SaO2 less than 92% and or/end-tidal CO2 is greater th an 50. ~ the patient is receiving an opioid, has unintended sedations assessed as RASS (-3), and is currently not on mechanical ventilation. RASS scale moderate (-3) is movement or eye opening to voice but no eye contact. Patient Monitoring Once the patient has demonstrated a response to the naloxone, continue to m onitor respiratory rate, depth, oxygen saturation and end-tidal CO2 (if availab le) every 15 minutes x 2, then every 30 minutes x 2, then every 1 hour x 1 after each naloxone dose. Consider transfer to ICU if patient respiratory parameters have not improved after 4 naloxone doses. For ordered IV doses 0.1-2mg give IVP. Give each 0.4mg over 15 seconds in emergency situations. For non -emergent situations further dilute in 9mL of NS to facilitate titration of response. naloxone (NARCAN) injection 0.4 mg 0.4 mg, Intravenous, EVERY 2 MIN PRN, op ioid reversal, Starting on Mon05/04/21 at 1606, Administer intravenous route when available and notify provider when administered. For unintended sedation or respiratory depression if all of the below criteria are met: ~ respiratory rate LES S than or EQUAL to 8. ~ SaO2 less than 92% and or/end-tidal CO2 is greater than 50. ~ the patient is receiving an opioid, has unintended sedation assessed as RASS (-4 ) or (-5) and patient is currently not on mechanical ventilation. RASS scale (-4) is deep sedation with no response to voice but movement or eye opening to physical stimulation. R ASS scale (-5) is unarousable. Patient Monitoring Once the patient has demonstrated a response to the naloxone, continue to monitor respiratory rate, depth, oxygen saturation and end-tidal CO2 (if available) every 15 mi nutes x 2, then every 30 minutes x 2, then every 1 hour x 1 after each naloxone dose. Consider tr ansfer to ICU if patient respiratory parameters have not improved after 4 nalox one doses. For ordered IV doses 0.1-2mg give IVP. Give each 0.4mg over 15 seconds in emergency situations. For non-emergent situations further dilu te in 9mL of NS to facilitate titration of response. naloxone (NARCAN) injection 0.4 mg 0.4 mg, Intramuscular, EVERY 2 MIN PRN, opioid reversal, Starting on Mon05/04/21 at 1606, Administer intramuscular if an int ravenous route is not available and notify provider when administered. For unintend ed sedation or respiratory depression if all of the below criteria are met: ~ res piratory rate LESS than or EQUAL to 8. ~ SaO2 less than 92% and or/end-tidal CO2 is greater eric n 50. ~ the patient is receiving an opioid, has unintended sedation assessed as RASS (-4) or (-5) and patient is currently not on mechanical ventilation. RA SS scale (-4) is deep sedation with no response to voice but movement or eye opening to physical stimulation. RASS scale (-5) is unarousa ble. Patient Monitoring Once the patient has demonstrated a response to the nalox one, continue to monitor respiratory rate, depth, oxygen saturation and end-tidal CO2 (if availab le) every 15 minutes x 2, then every 30 minutes x 2, then every 1 hour x 1 after each naloxone dose. Consider transfer to ICU if patient respiratory parameters have not improved after 4 naloxone doses. For ordered IV doses 0.1-2mg give IVP. Give each 0.4mg over 15 seconds in emergency situations. For non -emergent situations further dilute in 9mL of NS to facilitate titration of response. ondansetron (ZOFRAN) injection 4 mg 4 mg, Intravenous, EVERY 6 HOURS PRN, nausea, vomiting , Administer over 2-5 Minutes, Starting on Mon05/04/21 at 1553, This is Step 1 of nausea and vomiting management. If nausea not resolved in 15 minutes, go t o Step 2 prochlorperazine (COMPAZINE). Irritant. For ordered IV do ses 0.1-4 mg, give IV Push undiluted over 2-5 minutes. ondansetron (ZOFRAN-ODT) ODT tab 4 mg 4 mg, Oral, EVERY 6 HOURS PRN, nausea, v omiting, Starting on Mon05/04/21 at 1553, This is Step 1 of nausea and vomiting management. If n ausea not resolved in 15 minutes, go to Step 2 prochlorperazine (COMPAZINE). Do not push through foil backing. Peel back foil and gently remove. Place on to ngue immediately. Administration with liquid unnecessary W ith dry hands, peel back foil backing and gently remove tablet. Do not push oral d isintegrating tablet through foil backing. Administer immediately on tongue and oral disintegrati ng tablet dissolves in seconds, then swallow with saliva. Liquid not required . oxyCODONE (ROXICODONE) tablet 10 mg 10 mg, Oral, EVERY 4 HOURS PRN, severe p ain, (pain rating 7-10), Starting on Mon05/04/21 at 1553, Hold oral PRN dose for analgesic side effects. Notify provider to assess for uncontrolled pain or analgesic side effects . Hold while on IV GLUING CREW LEADER or with regular IV opioid dosing. oxyCODONE (ROXICODONE) tablet 5 mg 5 mg, Oral, EVERY 4 HOURS PRN, other, mo derate pain (pain rating 4-6), Starting on Mon05/04/21 at 1553, Hold oral PRN dose for analgesic side effects. Notify provider to assess for uncontrolled pain or analg esic side effects. Hold while on IV GLUING CREW LEADER or with regular IV opioid dosing. prochlorperazine (COMPAZINE) injection 1 0 mg 10 mg, Intravenous, EVERY 6 HOURS PRN, nausea, vomitin g, Administer over 1-2 Minutes, Starting on Mon05/04/21 at 1553, This is Step 2 of nausea and vomiting management. If nausea not resolved in 15 -30 minutes, Notify provider. For ordered IV doses 0.1-10 mg, give IV push undiluted, each 5 mg over 1 minute. prochlorperazine (COMPAZINE) tablet 10 m g 10 mg, Oral, EVERY 6 HOURS PRN, nausea, vomiting, Starting on Mon05/04/21 at 1553, This is Step 2 of nausea and vomiting ma nagement. If nausea not resolved in 15-30 minutes, Notify provider. senna-docusate (SENOKOT-S/PERICOLACE) Given 05/05/2021 10:36 AM CDT 1 tablet 8.6-50 MG per tablet 1 tablet 1 tablet, Oral, 2 TIMES DAILY, First dose on Mon05/04/21 at 2100, To prevent constipation. Hold for loose stools Hold for loose stools. Given 05/04/2021 9:19 PM CDT 1 tablet sodium chloride (PF) 0.9% PF flush 3 mL Given 05/05/2021 10:37 AM CDT 3 mLs 3 mL, Intracatheter, EVERY 8 HOURS, First dose on Mon05/04/21 at 1600, to lock peripheral IV dormant line sodium chloride 0.9% infusion New Bag 05/05/2021 6:15 AM CDT 75 mL/hr at 75 mL/hr, Intravenous, CONTINUOUS, Starting on Mon05/04/21 at 1600, Until Mon05/05/21 at 1539 New Bag 05/04/2021 4:07 PM CDT 75 mL/hr documented in this encounter Active and Recently Administered Medications Times are shown in CDT. Scheduled Medication Order 05/03/2021 05/04/2021 05/05/2021 acetaminophen (TYLENOL) tablet 975 mg (COMPLETED) 0638 (Given - Provider: Lucinda Kirk RN) 975 mg, Oral, ONCE, On Mon05/04/21 at 06 00, For 1 dose, Maximum acetaminophen dose from all sources = 75 mg/kg/day not to exceed 4 grams/day., Pre-procedure acetaminophen (TYLENOL) tablet 975 mg 16 54 (Given - Provider: Francisca Lion RN)0505 (Given - Provider: Kamille Casey RN) 0325 (Given - Provider: Kamille Casey RN)1036 (Given - Provider: Trini Morrow, RN) 975 mg, Oral, EVERY 6 HOURS, First dose on Mon05/04/21 at 1600, For 3 days, Administer for multimodal surgical pain management. Maximum acetaminophen dose from all sources = 75 mg/kg/day not to exceed 4 grams/day. amLODIPine (NORVASC) tablet 10 mg 10 mg, Oral, EVERY EVENING, First dose on Mon05/05/21 at 1999 ceFAZolin (ANCEF) 1 g vial to attach to NS 100 ml bag for ADULT or 50 ml bag for PEDS (COMPLETED) 1903 (New Bag - Provider: Francisca Lion , ANNE) 324 (New Bag - Provider: Kamille Casey RN)1036 (New Bag - Provider: Trini Morrow, RN) Routine, 1 g, Intravenous, EVERY 8 HOURS , First dose on Mon05/04/21 at 1900, For 3 doses, Indications: Perioperative Pharmacoprophylaxis ceFAZolin (ANCEF) intermittent infusion 2 g in 100 mL dextrose PRE-MIX (CANCELED) 0737 (Given - Provider: Aroldo Reynolds, PSYCHOLOGY TECH ROTOR CASTING MACHINE SETUP OPERATOR)1137 (Given - Provider: More Joseph, PSYCHOLOGY TECH ROTOR CASTING MACHINE SETUP OPERATOR) Routine, 2 g, Intravenous, SEE ADMIN INS TRUCTIONS, Starting on Mon05/04/21 at 0547, Intra-Op Dose.?Give every 4 hours while patient in surgery, starting 4 hours after pre-op dose.??DO NOT GIVE intra- op dose if CrCl less than 10 mL/min (on dialysis).??If CrCl less than 50 mL/min, double the time interval between doses., Indications: Perioperative Pharmacoprophylaxis, Pre-procedure losartan (COZAAR) tablet 50 mg 50 mg, Oral, EVERY EVENING, First dose on Mon05/05/21 at 1999 senna-docusate (SENOKOT-S/PERICOLACE) 8.6-50 MG per tablet 1 tablet 2118 (Given - Provider: Kamille Casey, ANNE) 1036 (Given - Provider: Trini merchant RN) 1 tablet, Oral, 2 TIMES DAILY, First dos e on Mon05/04/21 at 2100, To prevent constipation. Hold for loose stools Hold for loose stools. sodium chloride (PF) 0.9% PF flush 3 mL 1610 (Not Given - Provider: Francisca Lion, ANNE - Reason: IV Infusing)2311 (Not Given - Provider: Kamille Casey, RN - Reason: IV Infusing) 1037 (Given - Provider: Trini merchant RN) 3 mL, Intracatheter, EVERY 8 HOURS, Firs t dose on Mon05/04/21 at 1600, to lock peripheral IV dormant line Continuous Medication Order 05/03/2021 05/04/2021 05/05/2021 sodium chloride 0.9% infusion 1607 (New Bag - Pr ovider: Francisca Lion RN) 0615 (New Bag - Provider: Kamille Casey, RN) at 75 mL/hr, Intravenous, CONTINUOUS, St arting on Mon05/04/21 at 1600, Until Mon05/05/21 at 1539 PRN Medication Order 05/03/2021 05/04/2021 05/05/2021 bupivacaine (MARCAINE) 0.5% injection MDV (CANCELED) 1330 (Given - Provider: Jeffry Corral MD) PRN, Starting on Mon05/04/21 at 1330, Intra-procedure diphenhydrAMINE (BENADRYL) capsule 25 mg(Linked Group 1) 25 mg, Oral, EVERY 6 HOURS PRN, itching, Starting on Mon05/04/21 at 1553, Caution to be used when administering multiple Central Nervous System (MEMORANDUM STATEMENT CLERK) depressing meds within a short time frame. diphenhydrAMINE (BENADRYL) injection 25 mg(Linked Group 1) 25 mg, Intravenous, EVERY 6 HOURS PRN, i tching, Only give if patient unable to take PO., Starting on Mon05/04/21 at 1553, Caution to be used when administering multiple Central Nervous System (MEMORANDUM STATEMENT CLERK) depr essing meds within a short time frame. F or ordered IV doses 1-50 mg, give IV Push undiluted. Give each 25mg over a minimum of 1 minute. Extend in non-emergency HYDROmorphone (DILAUDID) injection 0.2 mg(Linked Group 2) 0.2 mg, Intravenous, EVERY 2 HOURS PRN, other, moderate pain (pain rating 4-6) IF patient unable to take oral pain medication or pain not controlled with oral analgesics, Starting on Mon05/04/21 at 1553 , Hold IV PRN opioid dose for analgesic side effects. Notify provider to assess for uncontrolled pain or analgesic side effects. HYDROmorphone (DILAUDID) injection 0.4 mg(Linked Group 2) 0.4 mg, Intravenous, EVERY 2 HOURS PRN, other, severe pain (pain rating 7-10) IF patient unable to take oral pain medication or pain not controlled with oral analgesics, Starting on Mon05/04/21 at 1553, Hold IV PRN opioid dose for analgesic s noa effects. Notify provider to assess for uncontrolled pain or analgesic side effects. lidocaine (LMX4) cream Topical, EVERY 1 HOUR PRN, pain, with VA D insertion, Starting on Mon05/04/21 at 1553, Apply at least 30 minutes prior to VAD insertion in divided doses as needed for size of site for insertion. MAX Dose : 2.5 g (?? of 5 g tube) Do NOT give if patient has a history of allergy to any local anesthetic or any delisa product. Do NOT use both lidocaine intradermal/subcutaneous injection and the lidocaine cream on the same site. lidocaine 1 % 0.1-1 mL 0.1-1 mL, Other, EVERY 1 HOUR PRN, mild pain with VAD insertion, Starting on Mon05/04/21 at 1553, MAX dose 1 mL subcutaneous OR intradermal along the side of the vein in divided doses as needed for VAD insertion. Do NOT give if patient has a history of allergy to any local anesthetic or any delisa product. Do NOT use both lidocaine intradermal/subcutaneous injection and the lidocaine cream on the same site. naloxone (NARCAN) injection 0.2 mg(Linked Group 3) 0.2 mg, Intravenous, EVERY 2 MIN PRN, op ioid reversal, Starting on Mon05/04/21 at 1606, Administer intravenous route when available and notify provider when administered. For unintended sedation or resp iratory depression if all of the below c riteria are met: ~ respiratory rate LESS than or EQUAL to 8. ~SaO2 less than 92% and or/end-tidal CO2 is greater than 50. ~ the patient is receiving an opioid, terry s unintended sedations assessed as RASS (-3), and is currently not on mechanical ventilation. RASS scale moderate (-3) is movement or eye opening to voice but no eye contact. Patient Monitoring Once the patient has demonstrated a response to the naloxone, continue to monitor respiratory rate, depth, oxygen saturation and end-tidal CO2 (if available) every 15 minutes x 2, then every 30 minutes x 2, the n every 1 hour x 1 after each naloxone d ose. Consider transfer to ICU if patient respiratory parameters have not improved after 4 naloxone doses. For ordered IV doses 0.1-2mg give IVP. Give each 0.4mg o yehuda 15 seconds in emergency situations. For non-emergent situations further dilute in 9mL of NS to facilitate titration of response. naloxone (NARCAN) injection 0.2 mg(Linked Group 3) 0.2 mg, Intramuscular, EVERY 2 MIN PRN, opioid reversal, Starting on Mon05/04/21 at 1606, Administer intramuscular if an intravenous route is not available and notify provider when administered. For uni ntended sedation or respiratory depressi on if all of the below criteria are met: ~ respiratory rate LESS than or EQUAL to 8. ~SaO2 less than 92% and or/end-tidal CO2 is greater than 50. ~ the patient is receiving an opioid, has unintended sed ations assessed as RASS (-3), and is currently not on mechanical ventilation. RASS scale moderate (-3) is movement or eye opening to voice but no eye contact. Pat ient Monitoring Once the patient has dem onstrated a response to the naloxone, continue to monitor respiratory rate, depth, oxygen saturation and end-tidal CO2 (if available) every 15 minutes x 2, then e very 30 minutes x 2, then every 1 hour x 1 after each naloxone dose. Consider transfer to ICU if patient respiratory parameters have not improved after 4 naloxone doses. For ordered IV doses 0.1-2mg giv e IVP. Give each 0.4mg over 15 seconds i n emergency situations. For non-emergent situations further dilute in 9mL of NS to facilitate titration of response. naloxone (NARCAN) injection 0.4 mg(Linked Group 3) 0.4 mg, Intravenous, EVERY 2 MIN PRN, op ioid reversal, Starting on Mon05/04/21 at 1606, Administer intravenous route when available and notify provider when administered. For unintended sedation or resp iratory depression if all of the below c riteria are met: ~ respiratory rate LESS than or EQUAL to 8. ~ SaO2 less than 92% and or/end-tidal CO2 is greater than 50. ~ the patient is receiving an opioid, h as unintended sedation assessed as RASS (-4) or (-5) and patient is currently not on mechanical ventilation. RASS scale (-4) is deep sedation with no response to voice but movement or eye opening to phy sical stimulation. RASS scale (-5) is un arousable. Patient Monitoring Once the patient has demonstrated a response to the naloxone, continue to monitor respiratory rate, depth, oxygen saturation and end -tidal CO2 (if available) every 15 minut es x 2, then every 30 minutes x 2, then every 1 hour x 1 after each naloxone dose. Consider transfer to ICU if patient respiratory parameters have not improved af ter 4 naloxone doses. For ordered IV dos es 0.1-2mg give IVP. Give each 0.4mg over 15 seconds in emergency situations. For non-emergent situations further dilute in 9mL of NS to facilitate titration of response. naloxone (NARCAN) injection 0.4 mg(Linked Group 3) 0.4 mg, Intramuscular, EVERY 2 MIN PRN, opioid reversal, Starting on Mon05/04/21 at 1606, Administer intramuscular if an intravenous route is not available and notify provider when administered. For uni ntended sedation or respiratory depressi on if all of the below criteria are met: ~ respiratory rate LESS than or EQUAL to 8. ~ SaO2 less than 92% and or/end- tidal CO2 is greater than 50. ~ the patient i s receiving an opioid, has unintended se dation assessed as RASS (-4) or (-5) and patient is currently not on mechanical ventilation. RASS scale (-4) is deep sedation with no response to voice but moveme nt or eye opening to physical stimulatio n. RASS scale (-5) is unarousable. Patient Monitoring Once the patient has demonstrated a response to the naloxone, continue to monitor respiratory rate, depth, o xygen saturation and end-tidal CO2 (if a vailable) every 15 minutes x 2, then every 30 minutes x 2, then every 1 hour x 1 after each naloxone dose. Consider transfer to ICU if patient respiratory paramet ers have not improved after 4 naloxone d oses. For ordered IV doses 0.1-2mg give IVP. Give each 0.4mg over 15 seconds in emergency situations. For non-emergent situations further dilute in 9mL of NS to facilitate titration of response. ondansetron (ZOFRAN) injection 4 mg(Linked Group 4) 4 mg, Intravenous, EVERY 6 HOURS PRN, na usea, vomiting, Administer over 2-5 Minutes, Starting on Mon05/04/21 at 1553, This is Step 1 of nausea and vomiting management. If nausea not resolved in 15 minut es, go to Step 2 prochlorperazine (ANGEL ZINE). Irritant. For ordered IV doses 0.1-4 mg, give IV Push undiluted over 2-5 minutes. ondansetron (ZOFRAN-ODT) ODT tab 4 mg(Linked Group 4) 4 mg, Oral, EVERY 6 HOURS PRN, nausea, v omiting, Starting on Mon05/04/21 at 1553, This is Step 1 of nausea and vomiting management. If nausea not resolved in 15 minutes, go to Step 2 prochlorperazine (C OMPAZINE). Do not push through foil back ing. Peel back foil and gently remove. Place on tongue immediately. Administration with liquid unnecessary With dry hands, peel back foil backing and gently remov e tablet. Do not push oral disintegratin g tablet through foil backing. Administer immediately on tongue and oral disintegrating tablet dissolves in seconds, then swallow with saliva. Liquid not required. oxyCODONE (ROXICODONE) tablet 10 mg(Linked Group 5) 10 mg, Oral, EVERY 4 HOURS PRN, severe p ain, (pain rating 7-10), Starting on Mon05/04/21 at 1553, Hold oral PRN dose for analgesic side effects. Notify provider to assess for uncontrolled pain or analge sic side effects. Hold while on IV GLUING CREW LEADER or with regular IV opioid dosing. oxyCODONE (ROXICODONE) tablet 5 mg(Linked Group 5) 5 mg, Oral, EVERY 4 HOURS PRN, other, mo derate pain (pain rating 4-6), Starting on Mon05/04/21 at 1553, Hold oral PRN dose for analgesic side effects. Notify provider to assess for uncontrolled pain or analgesic side effects. Hold while on IV GLUING CREW LEADER or with regular IV opioid dosing. prochlorperazine (COMPAZINE) injection 10 mg(Linked Group 6) 10 mg, Intravenous, EVERY 6 HOURS PRN, n ausea, vomiting, Administer over 1-2 Minutes, Starting on Mon05/04/21 at 1553, This is Step 2 of nausea and vomiting management. If nausea not resolved in 15-30 m inutes, Notify provider. For ordered IV doses 0.1-10 mg, give IV push undiluted, each 5 mg over 1 minute. prochlorperazine (COMPAZINE) tablet 10 mg(Linked Group 6) 10 mg, Oral, EVERY 6 HOURS PRN, nausea, vomiting, Starting on Mon05/04/21 at 1553, This is Step 2 of nausea and vomiting management. If nausea not resolved in 15-30 minutes, Notify provider. sodium chloride (PF) 0.9% PF flush 3 mL 3 mL, Intracatheter, EVERY 1 MIN PRN, li ne flush, other, to ensure patency or to lock dormant line, Starting on Mon05/04/21 at 1553 sodium chloride 0.9% (bag) irrigation (CANCELED) 0811 (Given - Provider: Jeffry Corral MD) PRN, Starting on Mon05/04/21 at 0811, Intra-procedure sodium chloride 0.9% (bottle) irrigation (CANCELED) 0811 (Given - Provider: Jeffry Corral MD) PRN, Starting on Mon05/04/21 at 0811, Intra-procedure Linked Groups Order Group 1: diphenhydrAMINE (BENADRYL) capsule 25 mgJump to med 25 mg, Oral, EVERY 6 HOURS PRN, itching, Starting on Mon05/04/21 at 1553
Caution to be used when administering multiple Central Nervous System (MEMORANDUM STATEMENT CLERK) depressing meds within a short time frame.
Or diphenhydrAMINE (BENADRYL) injection 25 mgJump to med 25 mg, Intravenous, EVERY 6 HOURS PRN, i tching, Only give if patient unable to take PO., Starting on Mon05/04/21 at 1553
Caution to be used when administering multiple Central Nervous System (C NS) depressing meds within a short time frame. For ordered IV doses 1-50 mg, give IV Push undiluted. Give each 25mg over a minimum of 1 minute. Extend in non-emergency
Group 2: HYDROmorphone (DILAUDID) injection 0.2 mgJump to med 0.2 mg, Intravenous, EVERY 2 HOURS PRN, other, moderate pain (pain rating 4-6) IF patient unable to take oral pain medication or pain not controlled with oral analgesics, Starting on Mon05/04/21 at 1553
Hold IV PRN opioid dose for analgesi c side effects. Notify provider to assess for uncontrolled pain or analgesic side effects.
Or HYDROmorphone (DILAUDID) injection 0.4 mgJump to med 0.4 mg, Intravenous, EVERY 2 HOURS PRN, other, severe pain (pain rating 7-10) IF patient unable to take oral pain medication or pain not controlled with oral analgesics, Starting on Mon05/04/21 at 1553& lt;br>Hold IV PRN opioid dose for analge sic side effects. Notify provider to assess for uncontrolled pain or analgesic side effects.
Group 3: naloxone (NARCAN) injection 0.2 mgJump to med 0.2 mg, Intravenous, EVERY 2 MIN PRN, op ioid reversal, Starting on Mon05/04/21 at 1606
Administer intravenous route when available and notify provider when administered. For unintended sedation or respiratory depression if a ll of the below criteria are met: ~ respiratory rate LESS than or EQUAL to 8. ~SaO2 less than 92% and or/end- tidal CO2 is greater than 50.& nbsp;~ the patient is receiving an opioi d, has unintended sedations assessed as RASS (-3), and is currently not on mechanical ventilation. RASS scale moderate (-3) is movement or eye opening to voice but no eye contact.&nbs p; Patient Monitoring Once the patient has demonstrated a response to the naloxone, continue to monitor respiratory rate, depth, oxygen satu ration and end-tidal CO2 (if available) every 15 minutes x 2, then every 30 minutes x 2, then every 1 hour x 1 after each naloxone dose. Consider transfer to ICU if patient respirator y parameters have not improved after 4 n aloxone doses. For ordered IV doses 0.1-2mg give IVP. Give each 0.4mg over 15 seconds in emergency situations. For non-emergent situations further dilute in 9mL of NS to facilitate titration of response.
Or naloxone (NARCAN) injection 0.4 mgJump to med 0.4 mg, Intravenous, EVERY 2 MIN PRN, op ioid reversal, Starting on Mon05/04/21 at 1606
Administer intravenous route when available and notify provider when administered. For unintended sedation or respiratory depression if a ll of the below criteria are met: ~ respiratory rate LESS than or EQUAL to 8. ~ SaO2 less than 92% and or/end- tidal CO2 is greater than 50.& nbsp;~ the patient is receiving an opioi d, has unintended sedation assessed as RASS (-4) or (-5) and patient is currently not on mechanical ventilation. RASS scale (-4) is deep sedati on with no response to voice but movemen t or eye opening to physical stimulation. RASS scale (-5) is unarousable. Patient Monitoring On ce the patient has demonstrated a respon se to the naloxone, continue to monitor respiratory rate, depth, oxygen saturation and end-tidal CO2 (if available) every 15 minutes x 2, then every 30 minutes x 2, then every 1 hour x 1 after each nalo xone dose. Consider transfer to ICU if patient respiratory parameters have not improved after 4 naloxone doses. For ordered IV doses 0 .1-2mg give IVP. Give each 0.4mg over 15 seconds in emergency situations. For non-emergent situations further dilute in 9mL of NS to facilitate titration of response.
Or naloxone (NARCAN) injection 0.2 mgJump to med 0.2 mg, Intramuscular, EVERY 2 MIN PRN, opioid reversal, Starting on Mon05/04/21 at 1606
Administer intramuscular if an intravenous route is not available and notify provider when administered. For unintended sedation or respira tory depression if all of the below criteria are met: ~ respiratory rate LESS than or EQUAL to 8. ~SaO2 less than 92% and or/end-tidal CO2 is greater than 50. ~ the patient i s receiving an opioid, has unintended sedations assessed as RASS (-3), and is currently not on mechanical ventilation. RASS scale moderate (-3) is movement or eye opening to voice but no eye contact. Patient Monitoring Once the patient has demonstrated a response to the naloxone, continue to monitor respiratory rate, depth, oxygen saturation and end-t idal CO2 (if available) every 15 minutes x 2, then every 30 minutes x 2, then every 1 hour x 1 after each naloxone dose. Consider transfer to [facility] if patient respiratory parameters hav e not improved after 4 naloxone doses. For ordered IV doses 0.1-2mg give IVP. Give each 0.4mg over 15 seconds in emergency situations. For non-emergent s ituations further dilute in 9mL of NS to facilitate titration of response.
Or naloxone (NARCAN) injection 0.4 mgJump to med 0.4 mg, Intramuscular, EVERY 2 MIN PRN, opioid reversal, Starting on Mon05/04/21 at 1606
Administer intramuscular if an intravenous route is not available and notify provider when administered. For unintended sedation or respira tory depression if all of the below criteria are met: ~ respiratory rate LESS than or EQUAL to 8. ~ SaO2 less than 92% and or/end-tidal CO2 is greater than 50. ~ the patient i s receiving an opioid, has unintended sedation assessed as RASS (-4) or (-5) and patient is currently not on mechanical ventilation. RASS s maria guadalupe (-4) is deep sedation with no respo nse to voice but movement or eye opening to physical stimulation. RASS scale (-5) is unarousable. Patien t Monitoring Once the patient has d emonstrated a response to the naloxone, continue to monitor respiratory rate, depth, oxygen saturation and end-tidal CO2 (if available) every 15 minutes x 2, then every 30 minutes x 2, then every 1 hour x 1 after each naloxone dose. Consider transfer to ICU if patient respiratory parameters have not improved after 4 naloxone doses.&nbs p;For ordered IV doses 0.1-2mg give IVP. Give each 0.4mg over 15 seconds in emergency situations. For non-emergent situations further dilute in 9mL of NS to facilitate titration of response.
Group 4: ondansetron (ZOFRAN-ODT) ODT tab 4 mgJump to med 4 mg, Oral, EVERY 6 HOURS PRN, nausea, v omiting, Starting on Mon05/04/21 at 1553
This is Step 1 of nausea and vomiting management. If nausea not resolved in 15 minutes, go to Step 2 prochlorperazine (COMPAZINE). Do not push through foil backing. Peel back foil and gently remove. Place on tongue immediately. Administration with liquid unnecessary With dry hands, pee l back foil backing and gently remove ta blet. Do not push oral disintegrating tablet through foil backing. Administer immediately on tongue and oral disintegrating tablet dissolves in seconds, then swallow with saliva. Liquid not required.
Or ondansetron (ZOFRAN) injection 4 mgJump to med 4 mg, Intravenous, EVERY 6 HOURS PRN, na usea, vomiting, Administer over 2-5 Minutes, Starting on Mon05/04/21 at 1553
This is Step 1 of nausea and vomiting management. If naus ea not resolved in 15 minutes, go to Stef p 2 prochlorperazine (COMPAZINE). Irritant. For ordered IV doses 0.1-4 mg, give IV Push undiluted over 2-5 minutes.
Group 5: oxyCODONE (ROXICODONE) tablet 5 mgJump to med 5 mg, Oral, EVERY 4 HOURS PRN, other, mo derate pain (pain rating 4-6), Starting on Mon05/04/21 at 1553
Hold oral PRN dose for analgesic side effects. Notify provider to assess for uncontrolled pain or analgesic side effects. Ho ld while on IV GLUING CREW LEADER or with regular IV opioid dosing.
Or oxyCODONE (ROXICODONE) tablet 10 mgJump to med 10 mg, Oral, EVERY 4 HOURS PRN, severe p ain, (pain rating 7-10), Starting on Mon05/04/21 at 1553
Hold oral PRN dose for analgesic side effects. Notify provider to assess for uncontrolled pain o r analgesic side effects. Hold whi le on IV GLUING CREW LEADER or with regular IV opioid dosing.
Group 6: prochlorperazine (COMPAZINE) injection 10 mgJump to med 10 mg, Intravenous, EVERY 6 HOURS PRN, n ausea, vomiting, Administer over 1-2 Minutes, Starting on Mon05/04/21 at 1553
This is Step 2 of nausea and vomiting management. If nausea not r esolved in 15-30 minutes, Notify provide r. For ordered IV doses 0.1-10 mg, give IV push undiluted, each 5 mg over 1 minute.
Or prochlorperazine (COMPAZINE) tablet 10 mgJump to med 10 mg, Oral, EVERY 6 HOURS PRN, nausea, vomiting, Starting on Mon05/04/21 at 1553
This is Step 2 of nausea and vomiting management. If nausea not resolved in 15-30 minutes, Notify provider.
documented in this encounter Care Teams Distribution Analyst Relationship Specialty Start Date End Date Satya Thornton PCP - General Family Medicine 04/14/21 [address] [place] [address] documented as of this encounter
--- OUTSIDE RECORDS SUMMARY | 2022-07-13 03:49 | XMS_ITS | Encounter Summary ---
:1960 Author Care Team Providers Name Role Phone Satya Thornton MD Primary Care Provider [phone] Reason for Visit None recorded. Assessment and Plan Assessment Note 61M s/p RALP + PLND on 05/04/21 for pT2N 0 Mckenzie 3+4=7 prostate cancer (-SMS, - SVI, 0/14 LN). Reviewed risk of recurrence and need for ongoing follow-up. 1) Prostate cancer - f/u in 6 months with PSA 2) Stress urinary incontinence - continue Kegels 3) Erectile dysfunction - sildenafil PRN - discussed ICI, he declines 1. Malignant tumor of prostate ? PSA, serum or plasma 2. Raised prostate specific antigen 3. Secondary erectile dysfunction Discussion Note: None recorded.Patient educational handouts: No information available. Plan of Care Reminders Provider Appointments Established 10/27/2022 2:10PM Jeffry Tyson MD ? [facility] 10/27/2022 2:00PM [email or web address] PSA, Serum or Plasma 05/04/2022 ? Referral None recorded. ? ? Procedures None recorded. ? ? Surgeries None recorded. ? ? Imaging None recorded. ? ? Medications Name Start Date ? ? amlodipine 10 mg tablet ? TAKE ONE TABLET BY MOUTH ONCE DAILY losartan 25 mg tablet ? sildenafil (pulmonary hypertension) 20 mg tablet ? Take one tab daily by mouth. One day week, take 5 tabs by mouth 30-60 minutes prior to sexual activity Medications Administered None recorded. Vitals Height Weight BMI 5 ft 9 in 215 lbs 31.7 kg/m2 Results Lab Results None recorded. Allergies Code Code System Name Reaction Severity Onset NKDA ? ? ? Problems Name Status Onset Date Source ? Raised Prostate Specific Antigen Active 01/22/2021 ? Malignant Tumor of Prostate Active 02/24/2021 ? Secondary Erectile Dysfunction Active 06/30/2021 ? Procedures Date Name Performed by ? 10/28/2019 Fecal Screening Tests Information not av ailable Notes: per [facility] Notes: calcaneal repair knee arthroscopy total left hip arthroplasty wisdom teeth Vaccine List Vaccine Type COVID-19, mRNA, LNP-S, PF, 100 mcg/0.5 m L dose (Moderna) 11/26/2020 12/24/2020 09/08/2021 Social History Tobacco Smoking Status Never Smoker What is your level of alcohol consumption? Occasional Marital status Do you or have you ever used smokeless tobacco? Never used s mokeless tobacco Preferred Language Micronesian What was the date of your most recent tobacco 05/04/2022 screening? Do you or have you ever used e-cigarettes or Never used elec tronic cigarettes vape? Ethnicity Not / What is your level of caffeine consumption? Occasional Do you use any illicit or recreational drugs? N Family History Relation Problem Onset Age of Age Notes Paternal Grandfather Family history of (No N/A Deni goddard H/O prostate cancer Information) prostate can cer - grandfather. Functional Status Unknown. Past Encounters 05/04/2022 Malignant Tumor of Prostate; Raised Pros root Specific Antigen; Secondary Erectile Dysfunction Jeffry Tyson MD: [address] [place], [place] [address]. [place] [address], Ph. History of Present Illness Note: <p>61M s/p RALP + PLND on 05/04/21 for pT2N0 Mckenzie 3+4=7 prostate cancer (-SMS, -SVI, 0/14 LN).</p><div>
</div><div>Continues to do well. No abdominal pain. Using 1 pad/day. Worse with activity. Doing Kegels. Never did PFPT.</div><div>
</div><div>Minimal erections. Hasn't used V20/100 lately </div><div>
</div><div>UF: 3/5</div><div>EF: 5/5</div><div>
< /div><div>PSA</div><div>06/30/21: <0.04</div><div>10/28/21: &a mp;lt;0.04</div><div>05/04/22: <0.04</div> Review of Systems ? Comprehensive General Adult ROS Reported By: Patient Constitutional: Constitutional: no fever, no chills Eyes: Eyes: no dry eyes, no vision change, no irritation Endocrine: Endocrine: no fatigue, no in creased thirst Cardiovascular: Cardiovascular: no chest berna n, no palpitations Integumentary: Skin: no rashes, no change i n skin color Respiratory: Respiratory: no wheezing, no cough, no shortness of breath Gastrointestinal: Gastrointestinal: no abdomin al pain, no nausea, no vomiting, no constipation, no GERD Musculoskeletal: Musculoskeletal: no neck berna n, no back pain Neurologic: Neurologic: no tremor, no di zziness, no numbness, no headaches Genitourinary: Genitourinary: no incontinen ce, no difficulty urinating ENMT: Ears: no ear pain. Mouth/Thr oat: no sore throat Allergic/Immunologic: Allergy/Immunologic: no itch ing, no hives Hematologic/Lymphatic: Hematologic/Lymphatic no swo llen glands, no excessive bleeding Psychiatric: Psych: no hallucinations, (n ormal) sleep disturbances: mismatch of sleep / wake courtney edule with lifestyle needs Physical Exam ? Notes: <div>General: No acute distr ess, well developed/well nourished</div><div>HEENT: C onjunctiva clear, extraocular movements intact, normocephalic/atraumatic</di v><div>Resp: Respirations nonlabored, no audible wheeze, symmetric</div><div> Psych: normal mood and affect</div><div>
</div>< div>
</div>
--- OUTSIDE RECORDS SUMMARY | 2022-07-13 03:49 | XMS_ITS | Encounter Summary ---
:1960 Author Organization [place] Address [facility] [place] [address] Care Team Providers Name Role Phone Satya Thornton Zachery Primary Care Provider Reason for Visit Auth/Cert Specialty Diagnoses / Procedures Referred By Contact Refer red To Contact Surgery Diagnoses Prostate cancer (H) Prostate cancer (H) [C61] Sh Periop Services Procedures [facility] LAPAROSCOPY, SURGICAL PROSTATECTOMY, RETROPUBIC RADICAL, W/NERVE SPARING robotic assisted laparoscopic prostatectomy AND PELVIC LYMPH NODE DISSECTION [address] [place] [address] Phone: Referral ID Status Reason Start Date Expiration Date Visits Requ ested Visits Authorized [id number] 1 1 Encounter Details Date Type Department Care Team Description 05/04/2021 Anesthesia Event [facility] Antoine Vivar MD [facility] [address] [facility] [address] [place] [address] [place], [place] [address] [phone] (Wo rk) Anesthesia Record Procedure Summary Procedure Name Responsible Anesthesia Start Anesthesia Stop Anesthesiologist Time Time ROBOTIC ASSISTED Jamshid Vivar MD 05/04/21 0730 05/04/21 1403 LAPAROSCOPIC PROSTATECTOMY AND BILTERAL PELVIC LYMPH NODE DISSECTION (Bilateral: Pelvis) Events Date Time Event Comment 05/04/2021 0706 PRODUCT DESIGNER Ready for Procedure 0730 An Start 0730 MD Present 0734 An Start Data 0734 AN REASSESS I attest that I have identified and re-evaluated the patient immediately before the induction of anesthesia and I am satisfied that t he anesthetic plan is suitable for the patient's condition and procedure. The f irst vital signs recorded are pre- inducti on. Nathanael Reynolds APRN CRNA 0742 0743 An Induction 0748 An Intubation 0748 MD Present 0800 Antibiotic Complete 0811 AN INCISION 0824 MD Present 0929 MD Present 1105 MD Present 1149 MD Present 1247 MD Present 1350 MD Present 1354 AN Extubation All extubation c bernieeria met prior to removal. 1356 an stop data 1403 An Stop Electronically s igned by Nathanael Reynolds APRN CRNA on Apr us2020 2:03 PM Name Total ceFAZolin (ANCEF) intermittent infusion 2 g in 100 mL dextrose PRE-MIX 4 g dexamethasone 4mg/mL 8 mg dexmedetomidine (PRECEDEX) 4 mcg/mL in sodium chloride 0.9 % 100 mL 91.67 mcg infusion fentaNYL (SUBLIMAZE) injection 250 mcg glycopyrrolate 0.2mg/mL 0.8 mg lidocaine 2% 100 mg midazolam 1mg/mL 2 mg neostigmine 1mg/mL 5 mg ondansetron 2mg/mL 4 mg phenylephrine (DINORA-SYNEPHRINE) injection 850 mcg propofol (DIPRIVAN) injection 10 mg/mL vial 200 mg propofol infusion (mcg/kg/min) 472.03 mg rocuronium 10mg/mL 220 mg HYDROmorphone 1 mg/mL 1 mg LR 2,000 mL albumin 5% 500 mL Agents Name NO HELIOX O2 N2O Air Exp Sevoflurane Exp Isoflurane Exp Desflurane Exp N2O Ins Sevoflurane Ins Isoflurane Ins Desflurane O2 Auxiliary Blood No blood administrations on file. Lines, Drains, and Airways Type Details Placement Removal Incision/Surgical Site 05/04/21; 1022; 05/04/21 1022 by Abdomen; incisions x6 Isabel Nguyen RN Peripheral IV 05/04/21; 0644; 05/04/21 0644 by 05/05/21 1439 b y Right; Hand; Lucinda Kirk RN Inpatient, Nurse Tolerated well ETT Placement Date: 05/04/21 0748 by 05/04/21 1354 b y 05/04/21; Placement Nathanael Reynolds Munch, D avid Allen, Time: 0748; Mask DRYWALL STRIPPER HELPER PRODUCT DESIGNER DRYWALL STRIPPER HELPER PRODUCT DESIGNER Ventilation: 2; Induction Type: Intravenous; Ease of Intubation: Easy; Technique: Video laryngoscopy; ETT Type: Oral; Tube Size: 8 mm; VL Blade Size: Higden scope 4; Grade View: 1; Adjucts: Stylet; Placement Person: PRODUCT DESIGNER; Attempts: 1; Depth: 24 cm Urethral Catheter 05/04/21; 0811; No; 05/04/21 0811 by 05/04/21 1219 by /GI/OVENS SUPERVISOR Pelvic Isabel Nguyen, Colleen Nguyen, Procedure; 18 fr RN RN Urethral Catheter 05/04/21; 1219; No; 05/04/21 1219 by 05/05/21 1439 by 18 fr Isabel Nguyen, Inpatient, Kaden gerardo RN documented in this encounter Social History Tobacco Use Types Packs/Day Years [...] / COVID-19? documented as of this encounter OR Notes Anesthesia Postprocedure Evaluation - Jamshid Vivar MD - 05/04/2021 3:32 PM CDT Patient: Steve Cervantes Procedure(s): ROBOTIC ASSISTED LAPAROSCOPIC PROSTATECTOMY AND BILTERAL PELVIC LYMPH NODE DISSECTION Diagnosis:Prostate cancer (H) [C61] Diagnosis Additional Information: No value filed. Anesthesia Type: General Note: Disposition: Admission Postop Pain Control: Uneventful Sign Out: Well controlled pain PONV: No Neuro/Psych: Uneventful Sign Out: Acceptable/Baseline neuro status Airway/Respiratory: Uneventful Sign Out: Acceptable/Baseline resp. status CV/Hemodynamics: Uneventful Sign Out: Acceptable CV status; No obvious hypovolemia; No obvious fluid overload Other NRE: NONE DID A NON-ROUTINE EVENT OCCUR? No Event details/Postop Comments: Sleep apnea orders written and discussed with CAR COOPER to release. Doing well. Please call with questions. Last vitals: Vitals Value Taken Time BP 118/81 05/04/21 1530 Temp 37.1 ??C (98.7 ??F) 05/04/21 1500 Pulse 74 05/04/21 1531 Resp 11 05/04/21 1531 SpO2 96 % 05/04/21 1531 Vitals shown include unvalidated device data. Electronically Signed By: Jamshid Vivar MD May 04, 2021 3:32 PM Anesthesia Preprocedure Evaluation - Jamshid Vivar MD - 05/04/2021 6:43 AM CDT Anesthesia Pre-Procedure Evaluation Patient: Steve Cervantes : 1960 Preoperative Diagnosis: Prostate cancer (H) [C61] Procedure : Procedure(s): robotic assisted laparoscopic prostatectomy AND PELVIC LYMPH NODE DISSECTION Past Medical History: Diagnosis Date ??? History of DVT of lower extremity ??? Hypertension ??? Motion sickness ??? Primary osteoarthritis of left hip ??? Prostate cancer (H) Past Surgical History: Procedure Laterality Date ? ? HEAD & NECK SURGERY WISDOM TEETH EXTRACTION ??? ORTHOPEDIC SURGERY RIGHT CALCANEAL REPAIR, RIGHT KNEE ARTHROSCOPY, LEFT KNEE ARTHROSCOPY, LEFT TOTAL HIP ARTHROPLASTY ??? ORTHOPEDIC SURGERY Left knee scope ??? ORTHOPEDIC SURGERY Left THR No Known Allergies Social History Tobacco Use ??? Smoking status: Never Smoker ??? Smokeless tobacco: Never Used Substance Use Topics ??? Alcohol use: Yes Comment: 3 BEERS/ WEEK Wt Readings from Last 1 Encounters: 05/04/21 94.5 kg (208 lb 6.4 oz) Anesthesia Evaluation Pt has had prior anesthetic. No history of anesthetic complications ROS/MED HX ENT/Pulmonary: Comment: Possible sleep apnea. Neurologic: - neg neurologic ROS Cardiovascular: (+) hypertension----- METS/Exercise Tolerance: Hematologic: (+) History of blood clots, Musculoskeletal: (+) arthritis, GI/Hepatic: - neg GI/hepatic ROS Renal/Genitourinary: Comment: Prostate CA. Endo: - neg endo ROS Psychiatric/Substance Use: - neg psychiatric ROS Infectious Disease: - neg infectious disease ROS Malignancy: Other: - neg other ROS Physical Exam Airway airway exam normal Respiratory Devices and Support Dental no notable dental history Cardiovascular cardiovascular exam normal Pulmonary pulmonary exam normal OUTSIDE LABS: CBC: No results found for: WBC, HGB, HCT, PLT BMP: No results found for: NA, POTASSIUM, CHLORIDE, CO2, BUN, CR, GLC COAGS: No results found for: PTT, INR, FIBR POC: No results found for: BGM, HCG, HCGS HEPATIC: No results found for: ALBUMIN, PROTTOTAL, ALT, AST, GGT, ALKPHOS, BILITOTAL, BILIDIRECT, ROSAMARIA OTHER: No results found for: PH, LACT, A1C, JOE, PHOS, MAG, LIPASE, AMYLASE, TSH, T4, T3, CRP, SED Anesthesia Plan ASA Status: 2 Anesthesia Type: General. - Airway: ETT Induction: Intravenous. Maintenance: Balanced. Techniques and Equipment: - Airway: Video-Laryngoscope Consents Anesthesia Plan(s) and associated risks, benefits, and realistic alternatives discussed. Questions answered and patient/representative personal service(s) expressed understanding. - Discussed with: Patient Postoperative Care Pain management: IV analgesics, Multi-modal analgesia. PONV prophylaxis: Ondansetron (or other 5HT-3), Dexamethasone or Solumedrol Comments: Jamshid Vivar MD documented in this encounter Miscellaneous Notes Anesthesia Care Transfer Note - Nathanael Reynolds APRN CRNA - 05/04/2021 2:02 PM CDT Patient: Steve Cervantes Procedure(s): ROBOTIC ASSISTED LAPAROSCOPIC PROSTATECTOMY AND BILTERAL PELVIC LYMPH NODE DISSECTION Diagnosis: Prostate cancer (H) [C61] Diagnosis Additional Information: No value filed. Anesthesia Type: General Note: Oropharynx: oropharynx clear of all foreign objects and spontaneously breathing Level of Consciousness: drowsy Oxygen Supplementation: face mask Level of Supplemental Oxygen (L/min / FiO2): 8 LPM Independent Airway: airway patency satisfactory and stable Dentition: dentition unchanged Vital Signs Stable: post-procedure vital signs reviewed and stable Report to RN Given: handoff report given Patient transferred to: PACU Handoff Report: Identifed the Patient, Identified the Reponsible Provider, Reviewed the pertinent medical history, Discussed the surgical course, Reviewed Intra-OP anesthesia mangement and issues during anesthesia, Set expectations for post-procedure period and Allowed opportunity for questions and acknowledgement of understanding Vitals: Vitals Value Taken Time BP 123/80 05/04/21 1359 Temp Pulse 92 05/04/21 1401 Resp 19 05/04/21 1401 SpO2 93 % 05/04/21 1401 Vitals shown include unvalidated device data. Electronically Signed By: Nathanael Reynolds APRN CRNA May 04, 2021 2:02 PM documented in this encounter Plan of Treatment Not on filedocumented as of this encounter Visit Diagnoses Not on filedocumented in this encounter Administered Medications Inactive Administered Medications - up to 3 most recent administrations Medication Order MAR Action Action Date Dose Rate Site albumin human 5 % injection New Bag 05/04/2021 11:58 AM CDT Intravenous, CONTINUOUS PRN, Starting on Mon05/04/21 at 0812, Anesthesia Intra-op New Bag 05/04/2021 8:12 AM CDT ceFAZolin (ANCEF) intermittent infusion 2 g in Given 0 05/04/2021 11:37 AM CDT 2 g 100 mL dextrose PRE-MIX Routine, 2 g, Intravenous, SEE ADMIN INSTRUCTIONS, Starting on Mon05/04/21 at 0547, Intra-Op Dose.?Give every 4 hours while patient in surgery, starting 4 hours after pre-op dose.??DO NOT GIVE intra-op dose if CrCl less than 10 mL/min (on dialysis).??If CrCl less than 50 mL/min, double the time interval between doses., Indications: Perioperative Pharmacoprophylaxis, Pre-procedure Given 05/04/2021 7:37 AM CDT 2 g dexamethasone (DECADRON) injection Given 05/04/2021 7:48 AM CDT 8 mg Intravenous, PRN, Administer over 1 Minutes, Starting on Mon05/04/21 at 0748, Anesthesia Intra-op dexmedetomidine (PRECEDEX) 4 Rate/Dose 05/04/2021 10:40 0.1 mcg/kg/h r 2.363 mcg/mL in sodium chloride Change AM CDT mL/hr 0.9 % 100 mL infusion Intravenous, CONTINUOUS PRN, Starting on Mon05/04/21 at 0744, Anesthesia Intra-op Rate/Dose Change 05/04/2021 10:34 AM CDT 0.15 mcg/kg/hr 3.544 mL/hr Rate/Dose Change 05/04/2021 8:14 AM CDT 0.2 mcg/kg/hr 4.725 mL/hr fentaNYL (PF) (SUBLIMAZE) injection Given 05/04/2021 9:08 AM CDT 50 mcg Intravenous, PRN, Administer over 3-5 Minutes, Starting on Mon05/04/21 at 0736, Anesthesia Intra-op Given 05/04/2021 7:44 AM CDT 150 mcg Given 05/04/2021 7:36 AM CDT 50 mcg glycopyrrolate (ROBINUL) injection Given 05/04/2021 1:41 PM CDT 0.8 mg Intravenous, PRN, Administer over 1-2 Minutes, Starting on Mon05/04/21 at 1341, Anesthesia Intra-op HYDROmorphone (DILAUDID) injection Given 05/04/2021 12:52 PM CDT 0.5 mg Intravenous, PRN, Starting on Mon05/04/21 at 1214, Anesthesia Intra-op Given 05/04/2021 12:14 PM CDT 0.5 mg lactated ringers infusion New Bag 05/04/2021 1:56 PM CDT Intravenous, CONTINUOUS PRN, Anesthesia Intra-op, Starting on Mon05/04/21 at 0734, Until Mon05/04/21 at 1403 New Bag 05/04/2021 8:45 AM CDT New Bag 05/04/2021 7:34 AM CDT lidocaine 2% injection (MDV) Given 05/04/2021 7:44 AM CDT 100 mg Other, PRN, Starting on Mon05/04/21 at 0744, Anesthesia Intra-op midazolam (VERSED) injection Given 05/04/2021 7:34 AM CDT 2 mg Intravenous, Administer over 2 Minutes, PRN, Starting on Mon05/04/21 at 0734, Anesthesia Intra-op neostigmine (PROSTIGMINE) injection Given 05/04/2021 1:41 PM CDT 5 mg Intravenous, PRN, Starting on Mon05/04/21 at 1341, Anesthesia Intra-op ondansetron (ZOFRAN) injection Given 05/04/2021 1:04 PM CDT 4 mg Intravenous, PRN, Administer over 2-5 Minutes, Starting on Mon05/04/21 at 1304, Anesthesia Intra-op phenylephrine (DINORA-SYNEPHRINE) injection Bolus 05/04/2021 1:22 PM CDT 100 mcg Intravenous, CONTINUOUS PRN, Starting on Mon05/04/21 at 0751, Anesthesia Intra-op Bolus 05/04/2021 1:03 PM CDT 50 mcg Bolus 05/04/2021 8:16 AM CDT 100 mcg propofol (DIPRIVAN) infusion Rate/Dose 05/04/2021 10:40 10 mcg/kg/min 5.67 mL/hr Intravenous, CONTINUOUS PRN, Change AM CDT Starting on Mon05/04/21 at 0744, Anesthesia Intra-op Rate/Dose Change 05/04/2021 10:35 AM CDT 15 mcg/kg/min 8.505 mL/hr Rate/Dose Change 05/04/2021 8:14 AM CDT 20 mcg/kg/min 11.34 mL/hr propofol (DIPRIVAN) injection 10 mg/mL v ial Given 05/04/2021 7:44 AM CDT 200 mg Intravenous, PRN, Starting on Mon05/04/21 at 0744, Anesthesia Intra-op rocuronium injection Given 05/04/2021 1:04 PM CDT 5 mg Intravenous, PRN, Starting on Mon05/04/21 at 0744, Anesthesia Intra-op Given 05/04/2021 12:50 PM CDT 5 mg Given 05/04/2021 12:31 PM CDT 10 mg documented in this encounter Care Teams Creping Machine Operator Relationship Specialty Start Date End Date Satya Thornton PCP - General Family Medicine 04/14/21 [address] [place] [address] documented as of this encounter
--- OUTSIDE RECORDS SUMMARY | 2022-07-13 03:49 | XMS_ITS | Encounter Summary ---
:1960 Author Organization [place] Address [facility] [place] [address] Care Team Providers Name Role Phone Unavailable Primary Care Provider Unavailable Encounter Details Date Type Department Care Team Description 03/02/2021 Orders Only [facility] for Daniel Mayorga OR Jeffry Arana MD screening for other [address] [facility] [address] LTD [phone] [address] [place] [address] (Wo rk) Social History Tobacco Use Types Packs/Day Years Used Date Smoking Tobacco: Never Assessed Sex Assigned at Date Recorded Not on file documented as of this encounter Miscellaneous Notes Addendum Note - Abhishek Smith LPN - 03/02/2021 4:07 PM CDT Addended by: ABHISHEK SMITH on: 03/02/2021 04:09 PM Modules accepted: Orders documented in this encounter Plan of Treatment Not on filedocumented as of this encounter Visit Diagnoses Diagnosis Encounter for screening for other viral diseases documented in this encounter
--- OUTSIDE RECORDS SUMMARY | 2022-07-13 03:49 | XMS_ITS | Encounter Summary ---
:1960 Author Organization [place] Address [address] [place] [id number] Care Team Providers Name Role Phone Satya Thornton Primary Care Provider Encounter Details Date Type Department Care Team Description 05/04/2021 Travel Social History Tobacco Use Types Packs/Day Years [...] / COVID-19? documented as of this encounter Plan of Treatment Not on filedocumented as of this encounter Visit Diagnoses Not on filedocumented in this encounter Care Teams Metal Shaping Machine Operator Relationship Specialty Start Date End Date Satya Thornton PCP - General Family Medicine 04/14/[address] [place] [address] documented as of this encounter
--- OUTSIDE RECORDS SUMMARY | 2022-07-13 03:49 | XMS_ITS | Encounter Summary ---
:1960 Author Organization [place] Address [address] [place] [address] Care Team Providers Name Role Phone Unavailable Primary Care Provider Unavailable Reason for Visit ML Physical Therapy (Routine) - Closed Specialty Diagnoses / Procedures Referred By Contact Refer red To Contact [facility] [address] [place] [address] [phone] Phone: Fax: Referral ID Status Reason Start Date Expiration Date Visits Requ ested Visits Authorized ML/HP/KNEE Closed 06/20/2011 08/19/2011 20 18 Encounter Details Date Type Department Care Team Description 06/27/[address] [facility] Henrik Colunga, Tear of medial cartilage or meniscus of knee, current; Rehabilitation PT Other postprocedural status Services [address] ATHLETIC [facility] [address] [place] [address] [place] [address] Social History Tobacco Use Types Packs/Day Years Used Date Smoking Tobacco: Never Assessed Sex Assigned at Date Recorded Not on file documented as of this encounter Progress Notes Henrik Colunga PT - 09/09/2011 10:48 AM SULKY DRIVER Addended by: HENRIK COLUNGA on: 09/09/2011 Modules accepted: Orders Y DRIVER Henrik Colunga, PT - 09/09/2011 10:47 AM CST Subjective: HPI Knee Activity of Daily Living Score: 70 Objective: System Physical Exam General ROS Assessment/Plan: DISCHARGE REPORT Progress reporting period is from 06/27/11 to 09/09/11. SUBJECTIVE Subjective changes noted by patient: Current status unknown as pt failed to schedule further appointments beyond his initial visit on 06/27/11. Current pain level is NA . Previous pain level was NA . Changes in function: Unknown. Adverse reaction to treatment or activity: None OBJECTIVE Changes noted in objective findings: Patient has failed to return to therapy so current objective findings are unknown. ASSESSMENT/PLAN Updated problem list and treatment plan: Diagnosis 1: Left knee menisectomy STG/LTGs have been met or progress has been made towards goals: Unknown. Assessment of Progress: The patient has not returned to therapy. Current status is unknown. Self Management Plans: Patient has been instructed in a home treatment program. Steve continues to require the following intervention to meet STG and LTG's: PT intervention is no longer required to meet STG/LTG. Recommendations: Discharge from PT. Please refer to the daily flowsheet for treatment today, total treatment time and time spent performing 1:1 timed codes. Y DRIVER Pilar Rogers - 06/27/2011 1:28 PM CDT Subjective: Pertinent medical history includes: None. Medical allergies: no. Other surgeries include: Orthopedic surgery (R knee scope 1995). Current medications: Heparin/coumadin. 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 Patient is currently not working due to present treatment problem. Primary job tasks include: Prolonged standing. Barriers include: None as reported by the patient. Red flags: None as reported by the patient. Objective: System Physical Exam General ROS Henrik Colunga - 06/27/2011 11:11 AM CDT Subjective: Pt presents to PT s/p left knee scope menisectomy with cyst removal. Surgery occurred on 06/24/11. Original injury occurred about 4 years ago while sledding. Knee had bothered him off/on since. Had a cortizone injection in it last May that helped for about a year. Hx of right knee scope menisectomy in 1995 and a right heel crush fx with ORIF in 2008.. General health as reported by patient is good. Objective: System Knee Evaluation: ROM: PROM Hyperextension: Left: 3 Right: 8 Extension: Left: 0 Right: 0 Flexion: Left: 130 Right: 140 Strength: Quad Set Left: Good Pain: Palpation: Palpation of knee: Incisions healing well. Edema: Edema of the knee: Mild edema present. Mobility Testing: Normal General ROS Assessment/Plan: Patient is a 50 year old male with left side knee complaints. Patient has the following significant findings with corresponding treatment plan. Diagnosis 1: Left knee scope menisectomy Decreased ROM/flexibility - manual therapy, therapeutic exercise and home program Decreased strength - therapeutic exercise, therapeutic activities and home program Previous and current functional limitations: (See Goal Flow Sheet for this information) Short term and senior living goals: (See Goal Flow Sheet for this information) Communication ability: Patient appears to be able to clearly communicate and understand verbal and written communication and follow directions correctly. Treatment Explanation - The following has been discussed with the patient: RX ordered/plan of care Anticipated outcomes Possible risks and side effects This patient would benefit from PT intervention to resume normal activities. Rehab potential is good. Frequency: 2-4 visits Duration: Discharge Plan: Achieve all LTG. Independent in home treatment program. Reach maximal therapeutic benefit. Please refer to the daily flowsheet for treatment today, total treatment time and time spent performing 1:1 timed codes. documented in this encounter Plan of Treatment Not on filedocumented as of this encounter Procedures Procedure Name Priority Date/Time Associated Diagnosis Comme nts [facility] THERAPEUTIC Routine 06/27/2011 4:26 PM Tear of medial cart ilage EXERCISES CDT or meniscus of knee, current Other postprocedural status [facility] HOT OR COLD PACKS Routine 06/27/2011 4:26 PM Tear of media l cartilage THERAPY CDT or meniscus of knee, current Other postprocedural status documented in this encounter Visit Diagnoses Diagnosis Tear of medial cartilage or meniscus of knee, current Other postprocedural status(V45.89) Other postprocedural status documented in this encounter
--- OUTSIDE RECORDS SUMMARY | 2022-07-13 03:49 | XMS_ITS | Encounter Summary ---
:1960 Author Organization [facility] Address [address] [place] [address] Care Team Providers Name Role Phone Satya Thornton Primary Care Provider Reason for Visit Auth/Cert Specialty Diagnoses / Procedures Referred By Contact Refer red To Contact Surgery Diagnoses Prostate cancer (H) Prostate cancer (H) [C61] Periop Services Procedures ZZC LAPAROSCOPY, SURGICAL PROSTATECTOMY, RETROPUBIC RADICAL, W/NERVE SPARING robotic assisted laparoscopic prostatectomy AND PELVIC LYMPH NODE DISSECTION [address] [place] [address] Phone: Referral ID Status Reason Start Date Expiration Date Visits Requ ested Visits Authorized [id number] 1 1 Encounter Details Date Type Department Care Team Description 05/04/2021 Surgery [facility] FÉLIX Corral ASSISTED [place] [facility] LAPAR[facility]COP[facility] PROSTATECTOMY AND [address] BILTERAL PELVIC LYMPH [address] [place] [address] [address] [place] [address] (Wo rk) Surgery Details Date/Time Status Location OR Service Patient Case Case Traum a Class Class Type Case? 05/04/21 7:30 Posted OR OR [facility] Coulter Same Day AM 43 Urology Surgery Panel 1 Procedure LRB Anes Op Region Wound Class Commen ts ROBOTIC ASSISTED Bilateral General Pelvis II-Clean Contaminat ed LAPAROSCOPIC PROSTATECTOMY AND BILTERAL PELVIC LYMPH NODE DISSECTION Surgeon Surgeon Role Service Panel Jeffry Corral MD Primary [facility] 1 Carolina Alegre PA-C Assisting 1 Special Needs FILOMENA UPDATED PRE PROCEDURE FORM 04/30/21 AB documented in this encounter Social History Tobacco [...] Sign Reading Time Taken Comments Blood Pressure 120/80 05/04/2021 5:58 AM CDT Pulse 66 05/04/2021 5:58 AM CDT Temperature 35.9 ??C (96.7 ??F) 05/04/2021 5:58 AM CDT Respiratory Rate 18 05/04/2021 5:58 AM CDT Oxygen Saturation 95% 05/04/2021 5:58 AM CDT Inhaled Oxygen Concentration - - [...] Alegre PA-C [facility] After 4pm and on weekends, please call [phone] Addm: Addended to add hgb results per inquiry from billing/coding team (Amanda Morillo). documented in this encounter Medications at Time of Discharge Medication Sig Dispensed Refills Start Date End Date amLODIPine (NORVASC) 10 Take 10 mg by mouth 0 MG tablet every evening losartan (COZAAR) 50 MG Take 50 mg by mouth 0 tablet every evening nystatin (MYCOSTATIN) Apply topically 2 0 294684 UNIT/GM external times daily as needed cream [...] Shahla Liu - 05/03/2021 9:56 AM CDT HAND SEWER SHOES medications updated by Medication Scribe prior to [...] at PM Yes Reported, Patient nystatin (MYCOSTATIN) 254408 UNIT/GM external cream Apply topically 2 times [...] are no significant changes Source Note - William Provider - 04/29/2021 9:24 AM CDT documented in this encounter Procedure Notes Jeffry Corral MD - 05/04/2021 1:48 PM CDT Preoperative Diagnosis: Prostate Cancer Postoperative Diagnosis: Prostate Cancer Procedure: 1. Robotic Radical Prostatectomy with bilateral pelvic lymphadenectomy Surgeon: Jeffry Corral MD Marine Engine Mechanic: Carolina Alegre PA-C Date of Procedure: 05/04/21 OPERATIVE INDICATION: Steve Cervantes is a 60 year old male with prostate cancer. After understanding various management options he elected to undergo today's procedure. Clinical stage: fH2bL1L1 PSA: 6.16 CHERYL: >50g, cT1c MRI findings: [...] manner. Time out was called. An 18 [employer] catheter was placed and the bladder was [...] prominence on the pubic bone. An 18 [employer] catheter was placed and the bladder irrigated well. A good watertight, tension free anastasmosis was obtained. Further inspection at this time showed no further bleeding. The string of the Endocatch was then brought out through the umbilical port site. The robot was then undocked. The laparoscopic ports were removed under vision and the 12 mm early childhood assistant port was closed with an 0 Vicryl using a Malik Fabbeo device I slightly extended the supraumbilical incision [...] CBC with platelets (05/05/2021 7:14 AM CDT) [facility] gist Method Time Signature WBC Count 12.3 (H) [...] Address City/State/ZIP Code [place] [address] Care Lab [address] 1st floor, Room 20B (ABNORMAL) Basic [...] Address City/State/ZIP Code Phon e Number LABORATORY [place] [address] Care Lab [address] 1[address] floor, Room 20B (ABNORMAL) Glucose by meter (05/05/2021 5:53 AM CDT) P athologist Signature GLUCOSE BY 102 (H) 70 - 99 05/05/2021 LABORATORY METER POCT mg/dL 6:01 AM CDT POC Specimen Anatomical Collection Method Collection Time Receive d Time (Source) Location / / Volume Laterality Blood BLOOD SPECIMEN / 05/05/2021 5:53 AM 05/05 6:01 Unknown CDT AM CDT Jeffry Corral MD LAB - BEAKER POCT Performing Organization Address City/State/ZIP Code Phon e Number LABORATORY [place] [address] Care Lab [address] 1[address] floor, Room 20B EKG 12-lead, tracing only (05/04/2021 2:45 PM CDT) Component Value Ref Range Test Analysis Performed Pathologis t Method Time At Signature Systolic Blood mmHg RADIOLOGY Pressure RESULTS Diastolic Blood mmHg RADIOLOGY Pressure RESULTS Ventricular Rate 89 BPM RADIOLOGY RESULTS Atrial Rate 89 BPM RADIOLOGY RESULTS NE Interval 134 ms RADIOLOGY RESULTS QRS Duration 102 ms RADIOLOGY RESULTS QT 396 ms RADIOLOGY RESULTS QTc 481 ms RADIOLOGY RESULTS P [place] degrees RADIOLOGY RESULTS R AXIS -13 degrees RADIOLOGY RESULTS T [place] -8 degrees RADIOLOGY RESULTS Interpretation Sinus rhythm RADIOLOGY ECG Inferior infarct , age undetermined RESULTS T-wave abnormality Abnormal ECG No previous ECGs available Confirmed by MD ASTON, ISAI Holbrook ([id number]), photo editor MENA CAST ([id number]) on 05/06/2021 8:09:53 AM Specimen Anatomical Collection Method Collection Time Receive d Time (Source) Location / / Volume Laterality 05/04/2021 2:45 PM 8:09 CDT AM CDT Sumit Adams MD ECG ORDERABLES Performing Organization Address City/State/ZIP Code Phon e Number RADIOLOGY RESULTS Surgical Pathology Exam (05/04/2021 9:37 AM CDT) Component Value Ref Test Analysis Performed At [facility] gist Range Method Time Signature Case Report Surgical Pathology Report ? Case: [id number] ? 05/07/2021 Authorizing Provider: ??O'Jeffry Duke ? Collected: ? 05/04/2021 09:37 AM ? 5:46 PM LABORATOR Y ? MD Sumti ? CDT Ordering Location: ? [facility] ?Received: ?05/05/2021 08:25 AM ? [facility] ? Pathologist: ? Estuardo, Ashleigh Russo, ? MD ? Specimens: ?? A) - Other, PE RI-PROSTATIC FAT ? B) - Pros root, PROSTATE AND SEMINAL VESICLES ? C) - Lymp h Node(s), Pelvis, Right, RIGHT PELVIC LYMPH NODES ? D) - Lymp h Node(s), Pelvis, Left, LEFT PELVIC LYMPH NODES ? Final A: Periprostatic fat, excision 1 SH Electronically Diagnosis -Negative for malignancy 5:46 PM LABOR ATORY signed by CDT Elodia Marte B: Prostate, robotic assisted laparoscopic prostatectomy MD Rafaela on -Prostatic adenocarcinoma, acinar type, confined to prostate 05/07/2021 at -[place] grade 3+4 = 7, grade group 2 [...] and Gleas on Score: ?Grade group 2 ([place] Score 3 + 4 = 7) ? [...] di screte tumor nodules are noted grossly. Project Analyst sections including the entire posterior aspect are [...] LABORATORY testing was CDT completed at [facility] Laboratory Specimen Anatomical Collection Method Collection Time [...] (specimen) STRUCTURE / Unknown CDT CDT Jeffry DOMINGO - MAGGIE Performing Organization Address City/State/ZIP Code [place] [address] [facility] [address] 1[address] floor, Room 20B Adult Type and Screen (05/04/2021 6:00 AM CDT) [facility] gist Method Time Signature ABO/RH(D) AB POS 05/04/2021 BLOOD 6:00 AM CDT BANK Antibody Negative Negative 05/04/2021 BLOOD Screen 6:00 AM CDT BANK SPECIMEN [id number] 05/04/2021 BLOOD EXPIRATION 6:00 AM CDT BANK DATE Specimen Anatomical Collection Method / Collection Time Recei chevy Time (Source) Location / Volume Laterality Blood STRUCTURE OF RIGHT Venipuncture / 05/04/2021 6:00 04/18 6:06 UPPER LIMB / Unknown AM CDT AM CDT Unknown Carolina Alegre PA-C LAB - BLOOD BANK TEST ORDER Performing Organization Address City/State/ZIP Code Phon e Number BLOOD BANK [address] [place] [address] EKG CARDIAC - HIM SCAN (04/26/2021 12:00 [...] Date Dose Rate Site acetaminophen (TYLENOL) tablet Given 05/05/2021 10:36 AM CDT 975 mg 975 mg 975 mg, Oral, EVERY 6 HOURS, First dose on Mon05/04/21 at 1600, For 3 days, Administer for multimodal surgical pain management. Maximum acetaminophen dose from all sources = 75 mg/kg/day not to exceed 4 grams/day. Given 05/05/2021 3:25 AM CDT 975 mg Given 05/04/2021 9:19 PM CDT 975 mg bupivacaine (MARCAINE) Given 05/04/2021 1:30 PM 30 mLs Operative Site/Surgical 0.5% injection MDV CDT Site PRN, Starting on Mon05/04/21 at 1330, Intra-procedure diphenhydrAMINE (BENADRYL) capsule 25 mg 25 mg, Oral, EVERY 6 HOURS PRN, itching, Starting on Mon05/04/21 at 1553, Caution to be used when administering multiple C entral Nervous System (DEBURRING MACHINE OPERATOR) depressing meds within a short time frame. diphenhydrAMINE (BENADRYL) injection 25 mg 25 mg, Intravenous, EVERY 6 HOURS PRN, i tching, Only give if patient unable to take PO., Starting on Mon05/04/21 at 1553, Caution to be us ed when administering multiple Central Nervous System (DEBURRING MACHINE OPERATOR) de pressing meds within a short time [...] side effects . Hold while on IV ELECTRIFICATION ADVISER or with regular IV opioid dosing. oxyCODONE (ROXICODONE) tablet 5 mg 5 mg, Oral, EVERY 4 HOURS PRN, other, mo derate pain (pain rating 4-6), Starting on Mon05/04/21 at 1553, Hold oral PRN dose for analgesic side effects. Notify provider to assess for uncontrolled pain or analg esic side effects. Hold while on IV ELECTRIFICATION ADVISER or with regular IV opioid dosing. prochlorperazine [...] peripheral IV dormant line sodium chloride 0.9% (bag) Given 05/04/2021 8:11 AM 1,000 mLs Operative irrigation CDT Site/Surgical S ite PRN, Starting on Mon05/04/21 at 0811, Intra-procedure sodium chloride 0.9% Given 05/04/2021 8:11 AM 1,000 mLs Operative (bottle) irrigation CDT Site/Surgical S ite PRN, Starting on Mon05/04/21 at 0811, Intra-procedure sodium chloride 0.9% infusion New Bag 05/05/2021 [...] mg 16 54 (Given - Provider: Francisca Lion, RN)2119 (Given - Provider: Kamille Casey, ANNE) 0325 (Given - Provider: Kamille Casey RN)1036 (Given - Provider: Trini Morrow, RN) 975 mg, Oral, EVERY 6 HOURS, First dose on Mon05/04/21 at 1600, For 3 days, Administer for multimodal surgical pain management. Maximum acetaminophen dose from all sources = 75 mg/kg/day not to exceed 4 grams/day. amLODIPine (NORVASC) tablet 10 mg 10 mg, Oral, EVERY EVENING, First dose on Mon05/05/21 at 2000 ceFAZolin (ANCEF) 1 g vial to attach to NS 100 ml bag for ADULT or 50 ml bag for PEDS (COMPLETED) 1904 (New Bag - Provider: Francisca Lion , ANNE) 032 (New Bag - Provider: Kamille Casey, ANNE)1036 (New Bag - Provider: Trini Morrow, ANNE) Routine, 1 g, Intravenous, EVERY 8 HOURS , First dose on Mon05/04/21 at 1900, For 3 doses, Indications: Perioperative Pharmacoprophylaxis ceFAZolin (ANCEF) intermittent infusion 2 g in 100 mL dextrose PRE-MIX (CANCELED) 0737 (Given - Provider: Aroldo Reynolds, INDUSTRIAL PHOTOGRAPHER CREASING AND CUTTING PRESS FEEDER)1137 (Given - Provider: More Joseph INDUSTRIAL PHOTOGRAPHER CREASING AND CUTTING PRESS FEEDER) Routine, 2 g, Intravenous, SEE ADMIN INS [...] EVERY EVENING, First dose on Mon05/05/21 at 2000 senna-docusate (SENOKOT-S/PERICOLACE) 8.6-50 MG per tablet 1 tablet 2118 (Given - Provider: Kamille Casey, RN) 1036 (Given - Provider: Trini merchant, RN) 1 tablet, Oral, 2 TIMES DAILY, First dos e on Mon05/04/21 at 2100, To prevent constipation. Hold for loose stools Hold for loose stools. sodium chloride (PF) 0.9% PF flush 3 mL 1610 (Not Given - Provider: Francisca Lion, ANNE - Reason: IV Infusing)2311 (Not Given - Provider: Kamille Casey RN - Reason: IV Infusing) 1037 (Given - Provider: Trini merchant, RN) 3 mL, Intracatheter, EVERY 8 HOURS, Firs t dose on Mon05/04/21 at 1600, to lock peripheral IV dormant line Continuous Medication Order 05/03/2021 05/04/2021 05/05/2021 sodium chloride 0.9% infusion 1607 (New Bag - Pr ovider: Francisca Lion, ANNE) 0615 (New Bag - Provider: Kamille Casey RN) at 75 mL/hr, Intravenous, CONTINUOUS, St [...] used when administering multiple Central Nervous System (DEBURRING MACHINE OPERATOR) depressing meds within a short time frame. diphenhydrAMINE (BENADRYL) injection 25 mg(Linked Group 1) 25 mg, Intravenous, EVERY 6 HOURS PRN, i tching, Only give if patient unable to take PO., Starting on Mon05/04/21 at 1553, Caution to be used when administering multiple Central Nervous System (DEBURRING MACHINE OPERATOR) depr essing meds within a short time [...] sic side effects. Hold while on IV ELECTRIFICATION ADVISER or with regular IV opioid dosing. oxyCODONE (ROXICODONE) tablet 5 mg(Linked Group 5) 5 mg, Oral, EVERY 4 HOURS PRN, other, mo derate pain (pain rating 4-6), Starting on Mon05/04/21 at 1553, Hold oral PRN dose for analgesic side effects. Notify provider to assess for uncontrolled pain or analgesic side effects. Hold while on IV ELECTRIFICATION ADVISER or with regular IV opioid dosing. prochlorperazine [...] used when administering multiple Central Nervous System (DEBURRING MACHINE OPERATOR) depressing meds within a short time frame.
[...] after each naloxone dose. Consider transfer to [facility] if patient respiratory parameters hav [...] side effects. Ho ld while on IV ELECTRIFICATION ADVISER or with regular IV opioid dosing.
Or oxyCODONE (ROXICODONE) tablet 10 mgJump to med 10 mg, Oral, EVERY 4 HOURS PRN, severe p ain, (pain rating 7-10), Starting on Mon05/04/21 at 1553
Hold oral PRN dose for analgesic side effects. Notify provider to assess for uncontrolled pain o r analgesic side effects. Hold whi le on IV ELECTRIFICATION ADVISER or with regular IV opioid dosing.
Group [...] provider.
documented in this encounter Care Teams Health Safety Manager Relationship Specialty Start Date End Date Satya Thornton PCP - General Family Medicine 04/14/21 [address] [place] [address] documented as of this encounter
--- OUTSIDE RECORDS SUMMARY | 2022-07-13 03:49 | XMS_ITS | Clinical Summary ---
:1960 Author Organization [facility] Address [address] [place] [address] Care Team Providers Name Role Phone Unavailable Primary Care Provider Unavailable Source Comments Patient records contain information from all sites at [facility]. For routine questions regarding patient records, call [phone] during business hours, M-F 8:00 AM - 5:00 PM Central Time. Record requests for emergency care only can be directed to [phone] at any time.[facility] Allergies No known active allergies Medications Medication Sig Dispensed Refills Start Date End Date Status nystatin (MYCOSTATIN) Apply topically. 0 06/19/2017 Active 100,000 unit/gram cream tamsulosin (FLOMAX) 0.4 Take 0.4 mg by 0 09/13/2020 Active mg 24 hr capsule mouth. Active Problems Problem Noted Date Primary Malignant Neoplasm Of Prostate 02/10/2021 Cancer Staging: Clinical stage from 2020: Stage IIB (cT1c, cN0, cM0, PSA: 6.2, Grade Group: 2) - Unsigned Social History Tobacco Use Types Packs/Day Years [...] Mass Index 31.39 02/17/2021 1:52 PM CDT Plan of Treatment Health Maintenance Due Date Last Done Comments CT Colonography 1960 Cologuard 1960 Colonoscopy 1960 Colorectal Cancer Screening 1960 FIT 1960 HIV Screening 1960 Hepatitis C Screening 1960 Depression Screening 09/18/2021 (Annual PHQ-2) COVID-19 Vaccine (4 - 11/03/2021 09/08/2021, 12/24/2020, Booster for Moderna series) 11/26/2020 Zoster Vaccines (2 of 2) 03/10/2022 01/13/2022 Fasting Glucose for 04/29/2022 04/29/2019 Diabetes Screening Influenza Vaccine (#1) 2022 07/02/2021, 06/12/2020, 06/03/2011, Additional history exists Lipid (Cholesterol) 02/26/2023 02/26/2018 Screening DTaP,Tdap,and Td Vaccines 07/01/2023 07/01/2013, 01/20/2011 , (3 - Td or Tdap) 07/01/2003, Additional history exists Pneumococcal vaccine (0-64 Aged Out No lo nger eligible years) based on patient 's age to complete this topic Insurance Payer Benefit Plan / Subscriber ID Effective Dates Phone Addre ss Type Group [facility] BCBS [id number] 2011-Present PPO SHIELD STANDARD
--- OUTSIDE RECORDS SUMMARY | 2022-07-13 03:49 | XMS_ITS | Clinical Summary ---
:1960 Author Organization [facility] [place] [address] Care Team Providers Name Role Phone Satya Thornton MD Primary Care Provider [phone] Allergies No known active allergies Medications Medication Sig Dispensed Refills Start Date End Date Status nystatin (MYCOSTATIN) Apply topically to 30 g 1 7 Active creamIndications: affected area(s) 2 Tinea pedis of right times daily. foot amLODIPine (NORVASC) Take 1 Tablet (10 90 Tablet 3 01/13/2022 Active 10 mg mg) by mouth once tabletIndications: daily. Essential hypertension losartan (COZAAR) 25 Take 1 Tablet (25 90 Tablet 3 01/13/2022 Active mg tabletIndications: mg) by mouth once Essential hypertension daily. aspirin (ECOTRIN) 81 Take 1 every other 0 01/14/2022 Active mg enteric coated day tabletIndications: History of DVT of lower extremity, Family history of DVT sildenafiL, Take 1 Tablet (20 30 Tablet 11 01/14/2022 Active pulm.hypertension, mg) by mouth once (REVATIO) 20 mg daily. tabletIndications: Erectile dysfunction of organic origin Active Problems Problem Noted Date Prostate cancer 04/18/2021 Primary osteoarthritis of left hip 04/29/2019 Overview: MARCOS Family history of DVT 04/29/2019 Overview: Brother, dad and PGF Essential hypertension 04/16/2018 History of DVT of lower extremity 09/18/2007 Overview: Post op 2007 After calcaneal fracture and immobility Immunizations Name Administration Dates Next Due COVID-19 vaccine (Moderna 100mcg/0.5mL) 12/24/2020, 11/27/19 21 PF, MDV Influenza, IIV3 (Age >=3 years) 06/03/2011, 05/29/2009, 06/18 Influenza, IIV4 06/10/2020 Td (Age >=7 Years) 07/01/2013, 07/01/2003, 08/18/1990 Tdap 01/20/2011 Zoster (Shingrix-RZV, recombinant) 01/13/2022 Family History Medical History Relation Name Comments Clotting disorder Brother clots after OR IF suregry Clotting disorder Father extensive clot s after surgery Heart Disease Father CABG Heart attack Maternal Grandfather Arthritis Mother Dementia Mother 82 as of 04/1019 Clotting disorder Paternal Grandfather post op T URP No Known Problems Sister 1 Arthritis Sister 2 TKA Arthritis Sister 3 TKA Relation Name Status Comments Brother Father Maternal Grandfather Mother Paternal Grandfather Sister 1 Sister 2 Sister 3 Social History Tobacco Use Types Packs/Day Years Used Date Never Smoker Smokeless Tobacco: Never Used Tobacco Cessation: Counseling Given: Yes Alcohol Use Standard Drinks/Week Comments Yes 3 (1 standard drink = 0.6 oz pure alcoho l) Alcohol Habits Answer Date Recorded How often do you have a drink containing alcohol? 2-4 times a month 03/04/2019 How many drinks containing alcohol do you have on a 1 or 2 03/04/2019 typical day when you are drinking? How often do you have six or more drinks on one Never 03/04/2019 occasion? Comment: Not asked Sex Assigned at Date Recorded Not on file Obstetrics History Last Filed Vital Signs Vital Sign Reading Time Taken Comments Blood Pressure 126/78 01/13/2022 1:57 PM CDT Pulse 69 01/13/2022 1:57 PM CDT Temperature 36.8 ??C (98.3 ??F) 03/04/2019 9:07 AM CDT Respiratory Rate 16 03/31/2009 5:35 PM CDT Oxygen Saturation 100% 01/13/2022 1:57 PM CDT Inhaled Oxygen Concentration - - Weight 99.8 kg (220 lb) 01/13/2022 1:57 PM CDT Height 174 cm (5' 8.5) 01/13/2022 1:57 PM CDT Body Mass Index 32.96 01/13/2022 1:57 PM CDT Plan of Treatment Health Maintenance Due Date Last Done Comments Hepatitis C screening for age 0311[birth year]27[birth year]1977 18-79 Fecal testing non-DNA 10/28/2020 10/28/2019, 04/17/2018 (FIT,FOBT,iFOBT) for age 45-75 COVID-19 vaccine series (4 - 11/03/2021 09/08/2021, 021, Booster for Moderna series) 11/26/2020 Zoster (shingles) series for age 0603/10/2022 01/13/2022 50+ (2 of 2) Influenza for age 50-64 05/19/2022 06/10/2020, 06/03/2011, 05/29/2009, Additional history exists BMI (ht and wt on same day) for 01/13/2023 01/13/2022, 08/0 05/2021, age 18+ 06/16/2020, Additional history exists Depression screening for age 12+ 01/13/2023 01/13/2022, , 03/06/2019, Additional history exists Tetanus booster 07/01/2023 07/01/2013, 01/20/2011, 07/01/2003, Additional history exists Lipids for age 45-75 01/13/2027 01/13/2022, 02/26/2018 Tdap Completed 01/20/2011 Medical Devices Implanted Type Area Vacuum Plastic Forming Machine Operator Device Shelf Model / Identifier Expiration Serial / Date Lot Wire K 4in .062dtk-Medic - [id number] Ortho Right: K-MEDIC 71-103# / Implanted: Qty: 4 on 01/07/2009 at [facility] Imp., Ankle / Pins, Rods, Wires Plate 1/3 Tubular 61mm 5 Hole W/Collar 241.35 Synthe - [id number] Ortho Depuy Synthes 241.35# / Implanted: Qty: 1 on 01/07/2009 at [facility] Imp.,Screw Companies / s & Plates Screw Cortex 3.5x30mm Sm Hex Socket 204.030 Synthes - [id number] Right: Depuy Synthes 204.030# / Implanted: Qty: 1 on 01/07/2009 at [facility] Ankle Companies / Explanted Type Area Vacuum Plastic Forming Machine Operator Device Shelf Model / Identifier Expiration Serial / Date Lot Louis Dozier 4in .062dtk-Medic - [id number] Ortho Right: K-MEDIC 71-103# / Explanted: Qty: 1 on 01/07/2009 at [facility] Imp., Ankle / Pins, Rods, Wires Screw Canclls 4.0x35mm Part Thread 207.035 Synthes - [id number] Right: Depuy Synthes 207.035# / Explanted: Qty: 1 on 01/07/2009 at [facility] Ankle Companies / Results Not on filefrom Last 3 Months Insurance Payer Benefit Plan / Subscriber ID Effective Dates Phone Addre ss Type Group WC WORKERS WC WORKERS [id number] 2008-Prese [phone] [address] [place] [address] BLUE [place] [id number] 2017-Prese [address] [address] [place] [address] BLUE CROSS BLUE CROSS ID [id number] 2011-Prese [address] [place] [address] Steve Cervantes Workers Comp Self [address] (Home) [place], [place] [phone] (Work) Advance Directives Latest Code Status on File Code Status Date Activated Date Inactivated Comments Full Code 03/31/2009 12:12 PM 03/31/2009 9:31 PM Full Code 01/07/2009 12:03 PM 01/08/2009 4:22 PM Full Code 01/07/2009 8:38 AM 01/07/2009 12:03 PM Care Teams Finisher Merchant Products Relationship Specialty Start Date End Date Satya Thornton MD PCP - General Family Practice 10/23/18 [address] [place] [address] (work)
--- OUTSIDE RECORDS SUMMARY | 2022-07-13 03:49 | XMS_ITS ---
:1960 Author Care Team Providers Name Role Phone ELA FIELDS MD Primary Care Provider [phone] Allergies Code Code System Name Reaction Severity Status Onset NKDA ? Medications Name Status Start Date Stop Date ? ? amlodipine 10 mg tablet Active ? Not avai lable ceftriaxone 1 gram solution for injection Completed ? 02/24/2021 Take 1 g by injection route. ciprofloxacin 500 mg tablet Completed ? 06/18 losartan 25 mg tablet Active ? Not availa ble losartan 50 mg tablet Completed ? 02/24/2021 oxycodone 5 mg tablet Completed ? 06/30/2021 sildenafil (pulmonary hypertension) 20 mg tablet Active ? Not available Take one tab daily by mouth. One day week, take 5 tabs by mouth 30-60 minutes prior to sexual activity tamsulosin 0.4 mg capsule Completed ? 2020 TAKE 1 CAPSULE BY MOUTH ONCE DAILY AFTER A MEAL. Problems Name Status Onset Date Source ? Raised Prostate Specific Antigen Active 01/22/2021 ? Malignant Tumor of Prostate Active 02/24/2021 ? Secondary Erectile Dysfunction Active 06/30/2021 ? Procedures Date Name Performed by ? 10/28/2019 Fecal Screening Tests Information not av ailable Notes: per [facility] 02/01/2021 NM, Bone Scan, Whole Body [facility] [address] [place], [place] [address] ([address]) Notes: calcaneal repair knee arthroscopy total left hip arthroplasty wisdom teeth Results Lab Results Date Name Specimen Result Interpretation Description Value Range Status Address ? 05/04/2022 PSA, Serum or ? No observation ? ? ? Plasma recorded. 10/28/2021 PSA, Serum or ? PSA, Total <0.04 ng/mL ? ? Plasma 06/30/2021 PSA, Serum or ? No observation ? ? ? Plasma recorded. ? PSA, Serum or ? PSA, Total <0.04 ng/ml ? ? Plasma Past Encounters 05/04/2022 Malignant Tumor of Prostate; Raised Pros root Specific Antigen; Secondary Erectile Dysfunction Jeffry Tyson MD: [address], [place] [address], Ph. 10/28/2021 Malignant Tumor of Prostate; Raised Pros root Specific Antigen; Secondary Erectile Dysfunction Jeffry Tyson MD: [address], [place] [address], Ph. 06/30/2021 Malignant Tumor of Prostate; Raised Pros root Specific Antigen; Secondary Erectile Dysfunction Jeffry Tyson MD: [address], [place] [address], Ph. 05/19/2021 Malignant Tumor of Prostate Jeffry Tyson MD: [address], [place] [address], Ph. 02/24/2021 Malignant Tumor of Prostate Jeffry Tyson MD: [address], [place] [address], Ph. 02/03/2021 Carcinoma of Prostate Vinay Hui MD: [address], [place] [address], Ph. 01/22/2021 Raised Prostate Specific Antigen Vinay Hui MD: [address], [address] [address], Ph. Social History Tobacco Smoking Status Never Smoker Vaccine List Vaccine Type COVID-19, mRNA, LNP-S, PF, 100 mcg/0.5 m L dose (Moderna) 11/26/2020 12/24/2020 09/08/2021 Plan of Care Reminders Provider Appointments None recorded. ? ? Lab None recorded. ? ? Referral None recorded. ? ? Procedures None recorded. ? ? Surgeries None recorded. ? ? Imaging None recorded. ? ? Vitals 05/04/2022 01:20PM ESTABLISHED 10 Height Weight BMI 5 ft 9 in 215 lbs 31.7 kg/m2 10/28/2021 02:20PM ESTABLISHED 10 Height Weight BMI 5 ft 9 in 215 lbs 31.7 kg/m2 06/30/2021 03:00PM ESTABLISHED 10 Height Weight BMI 5 ft 9 in 200 lbs 29.5 kg/m2 05/19/2021 08:00AM POST OP 20 Height Weight BMI 5 ft 9 in 200 lbs 29.5 kg/m2 02/24/2021 01:30PM ESTABLISHED 30 Height Weight BMI 5 ft 9 in 200 lbs 29.5 kg/m2 02/03/2021 04:00PM CA TALK Height Weight BMI 5 ft 9 in 192 lbs 28.4 kg/m2 01/22/2021 02:00PM URONAV 30 Height Weight BMI 5 ft 9 in 193 lbs 28.5 kg/m2 08/04/2020 11:30AM TRUS 30 Height Weight BMI 5 ft 9 in 193 lbs 28.5 kg/m2
== END 2022-07-13 03:52 | disposition home or self-care (01) ==
LOC: ED 03:46
PROVIDERS: Emergency Provider Family Medicine; PCP Family Medicine
DX: T15.02XA Foreign body in cornea, left eye, initial encounter (principal); Z18.10 Retained metal fragments, unspecified
CPT/HCPCS: 65220; 99282; 99283; A9270